=== PATIENT | female | born 1960 | race Caucasian/White ===

== ENCOUNTER → 2016-07-29 | Outpatient (CLI) | payer MEDICARE ==
--- NOTE | 2016-07-29 10:32 | CT ---
EXAMINATION TYPE: CT chest w con DATE OF EXAM: 07/29/2016 9:40 AM COMPARISON: Previous study dated 09/15/2015 and 03/02/2015. HISTORY: Lung cancer CT DLP: 450.70 mGycm Automated exposure control for dose reduction was used. CONTRAST: CT scan of the chest is performed with IV Contrast, patient injected with 100 mL of Omnipaque 300. FINDINGS: There are stable postradiation changes with chronic atelectasis in the right upper lobe. Th ere is a 5.4 mm subpleural nodule in the superior segment of the right lower lobe, best seen on image 24. No other definite parenchymal nodule is seen. There is mild atelectasis or consolidation at the right lung base. This also appears chronic. There is no significant axillary, internal mammary or mediastinal or hilar adenopathy. There is a 6.2 mm lymph node in the aortopulmonary window. There is no pleural or pericardial fluid. The heart is not enlarged. Visualized upper abdominal structures are unremarkable. There is mild hypertrophic spondylosis within the spine. No bony destructive lesion is seen. IMPRESSION: 1. Stable postradiation change in the right lung. 2. New, 5.4 mm subpleural nodule in the superior segment of the right lower lobe. 3. Mild degenerative change within the dorsal spine.
== END | disposition home or self-care (01) ==
LOC: RADCTMAIN 08:45
PROVIDERS: ATTEND Internal Medicine Hematology & Oncology
DX: R91.1 Solitary pulmonary nodule (principal); C34.90 Malignant neoplasm of unspecified part of unspecified bronchus or lung; Z88.5 Allergy status to narcotic agent; Z92.3 Personal history of irradiation
CPT/HCPCS: 71260; Q9967

== ENCOUNTER → 2016-12-21 | Outpatient (CLI) | payer MEDICARE ==
--- NOTE | 2016-12-21 10:12 | CT ---
EXAMINATION TYPE: CT chest w con DATE OF EXAM: 12/21/2016 COMPARISON: 07/29/2016 HISTORY: Follow-up for lung cancer with last radiation in February 2013 and last chemotherapy in 2012. CT DLP: 404.2 mGycm. Automated Exposure Control for Dose Reduction was Utilized. TECHNIQUE: CT scan of the thorax is performed following with IV Contrast, patient injected with 100 mL of Omnipaque 300. FINDINGS: LUNGS: Post radiation changes are appreciated within the right upper lobe and right lower lobe medial ly with postradiation confluent fibrosis and varicose type traction bronchiectasis. Stable areas of a djacent groundglass opacity in a curvilinear orientation in the dependent right lower lobe and anteri or right upper lobe are stable and also relate to postradiation fibrosis. The previously described 5. 4 mm area of subpleural density relates to focal pleural thickening and is now seen on series 4 image 21, similar to the prior. Right hemithorax volume loss is present with mediastinal shift to the righ t. No new nodule or mass is identified within either lung. There is compensatory hyperexpansion of th e left lung with peripheral subpleural reticulation, similar to the prior that may also represent ear ly fibrosis as it is in a peripheral basilar predominant distribution. There is no pleural effusion o r pneumothorax seen. The tracheobronchial tree is patent. MEDIASTINUM: There are no greater than 1 cm hilar or mediastinal lymph nodes. Prominent subcarinal l ymph node measures 8.6 mm but is not enlarged. No pericardial effusion is seen. OTHER: Multilevel mild degenerative changes of the thoracic spine are noted. IMPRESSION: 1. Stable post treatment changes of the right lung with right hemithorax volume loss, post radiation fibrosis, and bronchiectasis. No new pulmonary nodules or masses. 2. No new adenopathy within the thorax. 3. Previously seen approximately 5 mm subpleural density within the right upper lobe relates to focal pleural thickening in a similar to the prior exam. 4. Peripheral basilar predominant left lung subpleural reticulation which may relate to early fibrosi s.
== END | disposition home or self-care (01) ==
LOC: RADCTMAIN 09:18
PROVIDERS: ATTEND Internal Medicine Hematology & Oncology
DX: J47.9 Bronchiectasis, uncomplicated (principal); J84.10 Pulmonary fibrosis, unspecified; J98.4 Other disorders of lung; C34.90 Malignant neoplasm of unspecified part of unspecified bronchus or lung; Z92.3 Personal history of irradiation
CPT/HCPCS: 71260; Q9967

== ENCOUNTER → 2017-07-13 | Outpatient (CLI) | payer MEDICARE ==
--- NOTE | 2017-07-13 11:39 | CT ---
EXAMINATION TYPE: CT ChestAbdPelvis w con DATE OF EXAM: 07/13/2017 COMPARISON: 12/21/2016 HISTORY: Small Cell Lung CA, suspect Mets CT DLP: 1970 mGycm CONTRAST: CT scan of the chest, abdomen and pelvis is performed with Oral Contrast and with IV Contrast, patien t injected with 100 mL of Isovue 300. CT Chest: LUNGS: Post radiation changes are appreciated within the right upper lobe and right lower lobe medial ly with postradiation confluent fibrosis and varicose type traction bronchiectasis. Stable areas of a djacent groundglass opacity in a curvilinear orientation in the dependent right lower lobe and anteri or right upper lobe are stable and also relate to postradiation fibrosis. No evidence for recurrent o r residual mass. No concerning of pulmonary nodule. MEDIASTINUM: Thoracic aorta is of normal caliber. The heart is not enlarged. No evidence for media stinal mass or adenopathy. HILAR STRUCTURES: No evidence for mass. No hilar adenopathy is appreciated. OTHER: No significant abnormality. CONTRAST CT ABDOMEN AND PELVIS FINDINGS: LIVER/GB: There is evidence of mild hepatic steatosis. No calcified gallstones. No space occupying hepatic lesion. Biliary tree is of normal caliber. PANCREAS: No inflammation. No distinct mass. SPLEEN: No splenic enlargement. No lesion seen. ADRENALS: No nodule. No thickening. KIDNEYS/BLADDER: No hydronephrosis. No nephrolithiasis. No disctinct renal mass. BOWEL: Normal appendix. Normal bowel caliber. No inflammation. Moderate fecal stasis. GENITAL ORGANS: No gross abnormality. LYMPH NODES: No greater than 1cm abdominal or pelvic lymph nodes are appreciated. AORTA: No significant abnormality. OSSEOUS STRUCTURES: Postoperative changes lumbar spine. OTHER: No significant additional abnormality is seen. IMPRESSION: 1. No evidence for metastatic disease or recurrent disease at this time. 2. 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 3. Mild hepatic steatosis.
--- NOTE | 2017-07-13 15:41 | NM ---
EXAMINATION TYPE: NM bone scan whole body DATE OF EXAM: 07/13/2017 COMPARISON: Correlation CT same day HISTORY: 57-year-old female with history of lung cancer in 2013. All over headaches, bilateral knee a nd hip pain as well as back pain. Reports L4-S1 spinal fusion in 2010. Technique: Delayed whole-body scanning was performed following the injection of 23.8 mCi Tc 99m MDP. Images acquired 3 hours post injection. FINDINGS: Focal intense activity at the medial right clavicular head and severe within the bilateral knees. Mil d degenerative tracer activity along the posterior elements mid and lower lumbar spine. Mild degenera tive uptake at the AC joints and also some uptake along the Mandible likely relating to periodontal disease. No suspicious distribution of tracer activity to sug gest osseous metastatic disease. IMPRESSION: 1. Asymmetric moderate to severe degenerative change of the right sternoclavicular joint. 2. Severe bilateral knee osteoarthrosis. 3. Periodontal disease is suggested. 4. No scintigraphic evidence for osseous metastatic disease.
== END | disposition home or self-care (01) ==
LOC: RADNMMAIN 09:22
PROVIDERS: ATTEND Internal Medicine Hematology & Oncology
DX: C34.90 Malignant neoplasm of unspecified part of unspecified bronchus or lung (principal); M17.0 Bilateral primary osteoarthritis of knee; K76.0 Fatty (change of) liver, not elsewhere classified; J84.10 Pulmonary fibrosis, unspecified
CPT/HCPCS: 71260; 74177; 78306; A9503; Q9967

== ENCOUNTER → 2018-05-04 | Outpatient (CLI) | payer MEDICARE ==
--- NOTE | 2018-05-04 13:00 | CT ---
EXAMINATION TYPE: CT chest w con DATE OF EXAM: 05/04/2018 COMPARISON: 07/13/2017 HISTORY: History of lung cancer. Coughing up blood for [address] DLP: 441.1 mGycm, Automated exposure control for dose reduction was used. CONTRAST: Performed injected with 100 mL of Isovue 300. TECHNIQUE: Axial images were obtained at 5 mm thick sections. Reconstructed images are reviewed on [employer] computer in the coronal plane. FINDINGS: Portion of the thyroid visualized is normal. There is a consolidation in the medial right apex extending to the right posterior lung. A portion of this may be related to postradiation fibrosis. Underlying mass is within the differential. This area appears similar distribution in size to 07/13/2017 examination. No enlarged mediastinal or hilar adenopathy is evident. The ascending aorta diameter at the level o f the main pulmonary artery is 3.3 cm. The main pulmonary artery diameter at the bifurcation is 2.6 cm. Coronary artery calcification is present. Limited CT sections are obtained through the upper abdomen. Abdomen is essentially unremarkable. IMPRESSIONS: 1. There appear to be post radiation changes to the right medial apex. Findings appear stable from 07/13/2017.
== END | disposition home or self-care (01) ==
LOC: RADCTMAIN 11:47
PROVIDERS: ATTEND Internal Medicine Hematology & Oncology
DX: C34.90 Malignant neoplasm of unspecified part of unspecified bronchus or lung (principal)
CPT/HCPCS: 71260; Q9967

== ENCOUNTER → 2018-11-14 | Outpatient (CLI) | payer MEDICARE ==
[2018-11-14 15:10] LABS: Appearance,Urine Clear (Clear); Bilirubin,Urine Negative (Negative); Blood,Urine Negative (Negative); Color,Urine Light Yellow; Glucose,Urine (UA) Negative (Negative); Ketones,Urine Negative (Negative); Leukocyte Esterase,Urine Negative (Negative); Nitrite,Urine Negative (Negative); Protein,Urine Negative (Negative); Urobilinogen,Urine <2.0 mg/dL (<2.0)
[2018-11-14 15:12] LABS: HGB 15.2 gm/dL (11.4-16.0); MCH 30.6 pg (25.0-35.0); MCHC 33.8 g/dL (31.0-37.0); MCV 90.6 fL (80.0-100.0); Mean Platelet Volume 6.3; Platelet Count 355 k/uL (150-450); RBC 4.96 m/uL (3.80-5.40); RDW 14.1 % (11.5-15.5); WBC 6.6 k/uL (3.8-10.6)
[2018-11-14 15:24] LABS: Albumin 4.2 g/dL (3.5-5.0); Calcium 9.7 mg/dL (8.4-10.2); Potassium 4.7 mmol/L (3.5-5.1); Total Bilirubin 0.4 mg/dL (0.2-1.3); Total Protein 7.4 g/dL (6.3-8.2)
[2018-11-14 15:29] LABS: INR 0.9 (<1.2); Partial Thromboplastin Time 28.1 sec (22.0-30.0); Prothrombin Time 9.7 sec (9.0-12.0)
== END | disposition home or self-care (01) ==
LOC: LABPAT 14:04
PROVIDERS: ATTEND Orthopaedic Surgery
DX: Z01.812 Encounter for preprocedural laboratory examination (principal); Z79.01 Long term (current) use of anticoagulants
CPT/HCPCS: 36415; 80053; 81003; 85027; 85610; 85730; 87070

== ENCOUNTER 2018-11-21 13:34 | Day surgery (SDC) | payer MEDICARE ==
[~2018-11-21 13:34] MED LIST: ACETAMINOPHEN TAB 500 MG TAB PO ONE; MELOXICAM 7.5 MG TAB PO ONE; ROPIVACAINE 246.25 MG, EPINEPHrine 0.5 MG, KETOROLAC 30 MG, cloNIDine HCL/PF 80 MCG, WA... MISCELLANE ONE; TRANEXAMIC ACID 1,000 MG in SODIUM CHLORIDE 0.9% 100 ML IVPB ONE
[2018-11-21] MEDS ORDERED: ONDANSETRON 4 MG/2 ML VIAL IVP ONE (14:00)
[2018-11-21] MEDS ORDERED: DEXAMETHASONE SOD PHOSPHATE 10 MG/ML 1 ML VIAL IV ONE (14:00)
[2018-11-21] MEDS ORDERED: LIDOCAINE 1% 20 ML VIAL (10MG/ML) FOR IV START IV ONE (14:00)
[2018-11-21] MEDS ORDERED: LACTATED RINGERS 1,000 ML IV ONE ×2 (14:02→16:00)
[2018-11-21] MEDS ORDERED: NA PHOS,M-B/NA PHOS,DI-BA 133 ML ENEMA RECTAL PRN (14:10)
[2018-11-21] MEDS ORDERED: HYDROcodone/APAP 5-325MG 1 EACH TAB PO PRN (14:10)
[2018-11-21] MEDS ORDERED: NALOXONE 0.4 MG/ML 1 ML VIAL IV PRN (14:10)
[2018-11-21] MEDS ORDERED: DIAZEPAM 5 MG TAB PO PRN (14:10)
[2018-11-21] MEDS ORDERED: ONDANSETRON 4 MG/2 ML VIAL IVP PRN (14:10)
[2018-11-21] MEDS ORDERED: BISACODYL 10 MG SUPP RECTAL PRN (14:10)
[2018-11-21] MEDS ORDERED: MAGNESIUM HYDROXIDE 2,400 MG/10 ML CUP PO PRN (14:10)
[2018-11-21] MEDS ORDERED: fentaNYL (PF) 50 MCG/ML 2 ML AMP IV ONE (14:11)
[2018-11-21] MEDS ORDERED: MIDAZOLAM (PF) 2 MG/2 ML VIAL IV ONE (14:11)
[2018-11-21] MEDS ORDERED: MIDAZOLAM 2 MG/2 ML VIAL ONE (14:29)
[2018-11-21] MEDS ORDERED: diphenhydrAMINE 50 MG/ML 1 ML VIAL ONE (14:29)
[2018-11-21] MEDS ORDERED: PROPOFOL 10 MG/ML 20 ML VIAL IV ONE (14:29)
[2018-11-21] MEDS ORDERED: fentaNYL (PF) 50 MCG/ML 2 ML AMP ONE (14:29)
[2018-11-21] MEDS ORDERED: TRANEXAMIC ACID 1,000 MG/10 ML VIAL ONE (14:29)
[2018-11-21] MEDS ORDERED: SODIUM CHLORIDE 0.9% 100 ML BAG ONE (14:29)
[2018-11-21] MEDS ORDERED: ceFAZolin 3,000 MG in SODIUM CHLORIDE 0.9% IRRIGATIO 3,000 ML IRRIGATION ONE (14:35)
[2018-11-21] MEDS ORDERED: ROPIVACAINE 0.2%-NS ON-Q PUMP 1,090 MG, EMPTY PAIN BALL 1 EACH MISCELLANE PRN (15:19)
--- NOTE | 2018-11-21 15:20 | P.ANPRN ---
Procedure Note - Anesthesia - Nerve Block Performed Right Adductor Canal Infusion Time Out Performed: Yes Date of Procedure: 11/21/18 Procedure Start Time: 14:10 Procedure Stop Time: 14:19 Location of Patient Procedure: PreOp Indication: Acute Post-Operative Pain, Requested by Surgeon Sedation Type: Sedate with meaningful contact maintained Preparation: Sterile Prep, Sterile Dressing Position: Supine Catheter: Indwelling Needle Types: Pajunk Needle Gauge: 18 Ultrasound used to visualize needle placement: Yes Ultrasound used to observe medication spread: Yes Injectate: 0.5% Ropivacaine (see comment for volume) (20 ml) Blood Aspirated: No Pain Paresthesia on Injection Noted: No Resistance on Injection: Normal Image Stored and Saved: Yes Events: Uneventful and Well Tolerated
--- NOTE | 2018-11-21 15:49 | P.OP ---
Date of Procedure: 11/21/18 Preoperative Diagnosis: Severe osteoarthritis of the right knee Postoperative Diagnosis: Severe osteoarthritis right knee Procedure(s) Performed: Right total knee arthroplasty with [employer] patient specific knee system Implants: Dillon and Nephew Journey II CR Oxinium cruciate retaining femoral component size 5, right Dillon [employer] Nephew Journey right nonporous tibial baseplate size 3 Dillon [employer] Nephew Journey II, XLPE Deep Dished articular insert, size 9 mm, Size 3- 4 right Dillon [employer] Nephew Journey BCS resurfacing oval patellar component, 32 mm All components were cemented using Palacos R bone cement. [employer] patient specific guides The articulation is Oxinium on polyethylene. Anesthesia: spinal Surgeon: Deshawn Cunningham Farmer [employer]rain #1: Lety Herring Estimated Blood Loss (ml): 50 Pathology: other (Bone and cartilage) Condition: stable Disposition: PACU Indications for Procedure: After failure of conservative treatment we discussed the surgical and nonsurgical treatment options at length. Patient wishes to proceed with a total knee arthroplasty. Complications specific to this procedure were discussed at length, including but not limited to infection, bleeding, stiffness, and nerve injury. Patient is aware of all these complications and informed consent was obtained Operative Findings: The operative findings are consistent with severe osteoarthritis of the right knee Description of Procedure: Patient was seen in the preoperative area consent was reviewed and operative site was marked with a skin marker. An adductor canal pain catheter was placed by anesthesia in the preoperative area. Patient was then brought to the operating room and given preoperative antibiotics intravenously. A spinal anesthetic was administered by the anesthesia department. A tourniquet was placed on the upper thigh and the lower extremity was prepped and draped in usual sterile fashion. A gram of transexamic acid was given. A universal timeout was then performed which confirmed the patient's name, surgical site, ALLERGIES, and consent. The lower extremity was then exsanguinated and tourniquet was inflated to 250 mmHg. A standard and anterior midline approach to the knee was performed. The skin and subcutaneous tissue was dissected down to the patellar tendon. A medial parapatellar arthrotomy was then performed. The knee was then extended, the patellar was everted, and the knee was again flexed. Anterior horns of both menisci were excised, and a release was performed to the posterior medial aspect of the knee. On gross visual inspection, there was complete loss of articular cartilage in the medial and patellofemoral joint spaces. There was also significant cartilage damage in the lateral compartment. There were multiple periarticular osteophytes. The patient specific guide was placed on the distal femur, and pinned in place. Using the patient specific guide, the distal femoral cut was performed. The cutting block was then removed and the cut was checked for flatness. The appropriate 5-in-1 cutting block was then pinned in place through the holes that were drilled through the patient specific guide. The anterior condyles were cut without notching. The posterior and chamfer cuts were performed while protecting the collateral ligaments. The cutting block was then removed. Attention was then directed to the tibia. The remaining ACL was removed with a Ronguer, and the tibia was then gently subluxed forward with a large bent knee retractor. Any remaining menisci was excised. The posterior lateral corner was cauterized in order to cauterize the lateral geniculate artery. The patient specific guide for the tibia was then placed and was held in place with pins. Pinholes were then placed for rotation of the tibial component as well. Proximal tibia was then cut and sized. Next trials were then placed with the appropriate-sized insert. The knee was able to fully extend and flex to 130 and was stable throughout all range of motion. The knee was then extended, patella everted. Patella was then measured, and then using an osteotomy guide, the patella was cut at the appropriate level. The patella was then measured and drilled and the patella trial was then placed. The knee was then taken through range of motion with the patella trial and the patella tracked normally. The knee was then extended patella trial was then removed and the patella was everted. Knee was then flexed and lug holes were drilled through the femoral trial and the femoral trial was then removed. The tibial was then exposed, and the tibial broach guide was then pinned in place after it was set for the appropriate rotation to allow for the most coverage without overhang. The tibia was then reamed and broached. The cut surfaces of bone were then irrigated with pulsatile lavage. The posterior structures were injected with the ropivacaine solution. The knee was also irrigated with Irrisept solution. The components were then opened, the cement was mixed, and the components were then cemented in place. The cement was allowed to harden with the knee in full extension. While the cement was hardening, the remaining soft tissues were then injected with a ropivacaine solution, which consisted of 246.25 mg of ropivacaine, 0.5 mg of epinephrine, 30 mg of Toradol, 80 g of clonidine, and 48.45 mL of sterile water, for a total of 100 mL of fluid injected. After the cemented hardened. The tourniquet was released, and hemostasis was obtained. A second gram of transexamic acid was given. The knee was again irrigated. The knee was again taken through range of motion and found to be stable throughout all range of motion of 0-130, and the patella tracked normally. The fascia was then closed with #2 strata fix suture. The subcutaneous tissue was closed with 3-0 Vicryl and 3-0 strata fix. Dermabond glue was used for the skin and placed with the knee in flexion. The patient was placed in a sterile silver dressing. Patient was then transferred to recovery room in stable condition. The housekeeper/laundry assistant MATTIE Borrego was required due the complexity surgery and the need for a skilled surgical asst. She assisted in positioning, draping, retraction, and closure of the wound.
--- NOTE | 2018-11-21 17:18 | XR ---
EXAMINATION TYPE: XR knee limited RT DATE OF EXAM: 11/21/2018 COMPARISON: NONE HISTORY: Pain. Postop. TECHNIQUE: 2 views FINDINGS: There is a right knee prosthesis. Components are in anatomic position. IMPRESSION: No complicating process seen.
[2018-11-21 19:35] VITALS: BMI 29.0
[2018-11-21] MEDS: SODIUM CHLORIDE 0.9% 1,000 ML IV SCH (19:36)
[2018-11-21] MEDS: ASPIRIN 325 MG TAB PO SCH (20:39)
[2018-11-21] MEDS: hydrOXYzine PAMOATE 25 MG CAP PO PRN (20:39)
[2018-11-21] MEDS: HYDROcodone/APAP 5-325MG 1 EACH TAB PO PRN (20:39)
[2018-11-21] MEDS ORDERED: SENNOSIDES-DOCUSATE SODIUM 1 EACH TAB PO SCH (21:00)
[2018-11-21] MEDS ORDERED: PANTOPRAZOLE 40 MG TABLET PO SCH (21:30)
[2018-11-21] MEDS ORDERED: CYCLOBENZAPRINE 10 MG TAB PO SCH (21:30)
[2018-11-21] MEDS ORDERED: AMITRIPTYLINE HCL 25 MG TAB PO SCH (21:30)
[2018-11-21] MEDS: GABAPENTIN 300 MG CAP PO SCH (22:31)
--- NOTE | 2018-11-22 00:05 | P.CONS ---
History of Present Illness - Reason for Consult Consult date: 11/21/18 Medical management - Chief Complaint Right total knee arthroplasty elective surgery - History of Present Illness Patient is a 58-year-old female with a known history of COPD, coronary artery disease status post stent placement 3, GERD, hyperlipidemia and osteoarthritis was admitted to the hospital for elective right total knee arthroplasty. Patient currently denied any complaints of chest pain or shortness of breath. No nausea vomiting or abdominal pain. Right knee pain is well controlled otherwise postoperatively patient is hypotensive. No complaints of dizziness or lightheadedness. No cough or sputum production. Patient otherwise continues to smoke. Review of Systems Constitutional: Patient denies any fever or chills . No generalized weakness or weight loss. Abdomen: Patient denied nausea vomiting and diarrhea and abdominal pain. Cardiovascular: Patient denies any chest pain or short of breath no palpitations. Respiratory: patient denied any cough is from production. No shortness of breath Neurologic: Patient denied any numbness or tingling headache. Musculoskeletal: Patient denies any complaints of joint swelling or deformity. Skin: Negative Psychiatric: Negative Endocrine: No heat or cold intolerance. No recent weight gain. Genitourinary: No dysuria or hematuria. All other 14 point ROS negative except the above Past Medical History Past Medical History: Coronary Artery Disease (CAD), Cancer, COPD, GERD/Reflux, Hyperlipidemia, Osteoarthritis (OA) Additional Past Medical History / Comment(s): Fibromyalgia, lung cancer Last Myocardial Infarction Date:: 2016 History of Any Multi-Drug Resistant Organisms: None Reported Past Surgical History: Back Surgery, Section, Heart Catheterization With Stent, Hysterectomy Additional Past Surgical History / Comment(s): RIGHT KNEE ARTHROSCOPIC , LUNG BIOPSY Past Anesthesia/Blood Transfusion Reactions: Motion Sickness, Postoperative Nausea & Vomiting (PONV) Date of Last Stent Placement:: 2016 Past Psychological History: No Psychological Hx Reported Smoking Status: Current some day smoker Past Alcohol Use History: None Reported Additional Past Alcohol Use History / Comment(s): STATES SHE SMOKES ONE CIGARETTE DAILY Past Drug Use History: None Reported - Past Family History Mother Family Medical History: No Reported History Medications and Allergies Home Medications Medication Instructions Recorded Confirmed Type Albuterol Inhaler [Ventolin Hfa 2 puff INHALATION RT-Q6H PRN 03/02/15 11/21/18 History Inhaler] Albuterol Nebulized [Ventolin 3 mg INHALATION RT-TID PRN 03/02/15 11/21/18 History Nebulized] Amitriptyline HCl [Elavil] 75 mg PO HS 03/02/15 11/21/18 History Cyclobenzaprine [Flexeril] 10 mg PO HS 03/02/15 11/21/18 History Estradiol [Estrace] 1 mg PO DAILY 03/02/15 11/21/18 History Gabapentin 600 mg PO TID 03/02/15 11/21/18 History Ipratropium Nebulized [Atrovent 0.5 mg INHALATION RT-TID 03/02/15 11/21/18 History Nebulized 0.2 MG/ML] Omeprazole 40 mg PO HS 03/02/15 11/21/18 History Aspirin 325 mg PO DAILY #30 tab 03/04/15 11/21/18 Rx Nitroglycerin Sl Tabs [Nitrostat] 0.4 mg SUBLINGUAL Q5M PRN #25 tab 03/04/15 11/21/18 Rx Budesonide [Pulmicort] 0.25 mg INHALATION BID 01/01/16 11/21/18 History Cbd Oil 1 applic PO DAILY 11/14/18 11/21/18 History Ezetimibe [Zetia] 10 mg PO DAILY 11/14/18 11/21/18 History traMADol HCL [Ultram] 50 mg PO Q12HR PRN 11/14/18 11/21/18 History Allergies Allergy/AdvReac Type Severity Reaction Status Date / Time codeine Allergy Rash/Hives, Verified 11/21/18 13:47 VOMITING hydromorphone HCl Allergy Anaphylaxis Verified 11/21/18 13:47 [From Dilaudid] Physical Exam Vitals: Vital Signs Temp Pulse Pulse Resp BP Pulse Ox 11/21/18 20:41 98.8 F 104 H 16 105/68 96 11/21/18 18:00 97.8 F 101 H 18 112/70 98 11/21/18 17:02 101 H 16 110/60 97 11/21/18 16:47 105 H 16 113/61 95 11/21/18 16:30 102 H 16 108/65 95 11/21/18 16:25 97.8 F 102 H 14 102/61 95 11/21/18 14:24 95 16 109/65 97 11/21/18 13:49 98.1 F 111 H 16 116/58 96 Intake and Output 11/21/18 11/21/18 11/21/18 06:59 14:59 22:59 Intake Total 1051 1030 Output Total 50 Balance 1051 980 Intake: IV 1051 100 Intake, IV Titration 140 Amount Sodium Chloride 0.9% 1, 140 000 ml @ 70 mls/hr IV . [id number] Rx#:[id number] Oral 790 Output: Estimated Blood Loss 50 Other: Voiding Method Toilet Diaper # Voids 2 PHYSICAL EXAMINATION: Patient is lying in the bed comfortably, no acute distress, awake alert and oriented.. HEENT: Normocephalic. Neck is supple. Pupils reactive. Nostrils clear. Oral cavity is moist. Ears reveal no drainage. Neck reveals no JVD, carotid bruits, or thyromegaly. CHEST EXAMINATION: Trachea is central. Symmetrical expansion. Lung cramer clear to auscultation and percussion. CARDIAC: Normal S1, S2 with no gallops. No murmurs ABDOMEN: Soft. Bowel sounds normal. No organomegaly. No abdominal bruits. Extremities: reveal no edema. No clubbing or cyanosis Neurologically awake, alert, oriented x3 with well-coordinated movements. No focal deficits noted Skin: No rash or skin lesions. Psychiatric: Coperative. Nonsuicidal Musculoskeletal: No joint swelling or deformity. Right knee surgical site is intact.. Assessment and Plan Assessment: Status post right total knee arthroplasty postoperative day 0. Hypertension likely due to anesthesia and narcotic pain medications. Stable now. COPD stable. Coronary artery disease with history of stent placement 3 GERD Hyperlipidemia Osteoarthritis of multiple joints Currently one cigarette per day History of back surgery History of lung cancer DVT prophylaxis Plan: Patient be continued on pain medications and bowel regimens as per primary team. Encourage ambulation and incentive spirometry. DVT prophylaxis. Continue with aspirin statins. Continue with duo nebs and follow closely. Monitor blood pressure and fluid bolus as needed. Limit narcotic pain medication use. Smoking cessation has been counseled Further recommendations based on the clinical course. We will continue to follow with you. Thank you for your consult. Time with Patient: Greater than 30
[2018-11-22 02:14] VITALS: RESP 18
[2018-11-22] MEDS: hydrOXYzine PAMOATE 25 MG CAP PO PRN (02:34)
[2018-11-22] MEDS: HYDROcodone/APAP 5-325MG 1 EACH TAB PO PRN ×2 (02:34→08:15)
[2018-11-22] MEDS: SODIUM CHLORIDE 0.9% 1,000 ML IV SCH (05:54)
[2018-11-22 06:59] LABS: Basophils # (A) 0.1 k/uL (0-0.2); Basophils % (A) 0 %; Eosinophils % (A) 0 %; HCT 40.3 % (34.0-46.0); HGB 13.5 gm/dL (11.4-16.0); Lymphocytes # (A) 1.7 k/uL (1.0-4.8); Lymphocytes % (A) 8 %; MCH 30.2 pg (25.0-35.0); MCHC 33.4 g/dL (31.0-37.0); MCV 90.2 fL (80.0-100.0); Mean Platelet Volume 6.9; Monocytes # (A) 0.7 k/uL (0-1.0); Monocytes % (A) 3 %; Neutrophils # (A) 18.4 k/uL (1.3-7.7); Neutrophils % (A) 88 %; Platelet Count 411 k/uL (150-450); RBC 4.47 m/uL (3.80-5.40); RDW 15.3 % (11.5-15.5)
[2018-11-22 07:11] LABS: African American GFR (CKD) >90 (>60 ml/min/1.73 sqM); Anion Gap 10 mmol/L; Blood Urea Nitrogen 19 mg/dL (7-17); Calcium 9.5 mg/dL (8.4-10.2); Carbon Dioxide 23 mmol/L (22-30); Chloride 104 mmol/L (98-107); Glucose 109 mg/dL (74-99); Potassium 4.6 mmol/L (3.5-5.1); Sodium 137 mmol/L (137-145)
[2018-11-22 07:28] VITALS: BP 120/73; PULSE 90; TEMP 98.6
[2018-11-22] MEDS: GABAPENTIN 300 MG CAP PO SCH (08:11)
[2018-11-22] MEDS: ASPIRIN 325 MG TAB PO SCH (08:12)
--- NOTE | 2018-11-22 08:14 | P.PN ---
Progress Note - Text Progress Note Date: 11/22/18 Pt with some pain in the posterior knee as expected. Pain covered with PO meds. Ambulating w/o weakness. VSS R adductor canal catheter site clean and dry POD#1 s/p R TKA - doing well
[2018-11-22] MEDS ORDERED: EZETIMIBE 10 MG TAB PO SCH (09:00)
[2018-11-22] MEDS ORDERED: MELOXICAM 7.5 MG TAB PO SCH (09:00)
[2018-11-22] MEDS ORDERED: ESTRADIOL 0.5 MG TAB PO SCH (09:00)
[2018-11-22] MEDS ORDERED: traMADol 50 MG TAB PO PRN ×2 (09:02)
--- NOTE | 2018-11-22 09:43 | P.DS ---
Providers Expected date of discharge: 11/22/18 Attending physician: Deshawn Cunningham Consults: 11/21/18 14:10 Consult Physician Routine Consulting Provider: Iram Paredes Consult Reason/Comments: medical management Do you want consulting provider notified?: Yes Primary care physician: Sandrita Raphael - Discharge Diagnosis(es) (1) Osteoarthritis of right knee Current Visit: Yes Status: Acute (2) S/P total knee arthroplasty Current Visit: Yes Status: Acute Hospital Course: This is a 58-year-old female with known history of degenerative arthritis of the right knee. The patient presents for evaluation. After discussion and consideration patient elects to proceed with total knee arthroplasty. The patient is seen preoperatively by Dr. Cunningham and medically cleared for surgery by their primary care physician. Patient is admitted to [facility] on 11/21/2018 for total knee arthroplasty. The procedures performed without complication or sequelae. The patient is doing well postoperatively. Labs and vital signs are stable on day of discharge. On day of discharge patient's knee incision is healing well. There is minimal erythema. There is no drainage noted at this time. There is minimal soft tissue swelling to the knee. Patient has full foot and ankle motion without difficulty or pain. Calf is soft and nontender to palpation. Neurovascular status to the right lower extremity is intact. Patient is discharged home in good condition. Opioid start talking form is reviewed and signed at patient bedside. Please see med rec for accurate list of home medications. Plan - Discharge Summary Discharge Rx Participant: Yes New Discharge Prescriptions: New Aspirin 325 mg PO BID #60 tab Sennosides [Senokot] 1 tab PO BID #60 tablet traMADol HCl [Ultram] 1 - 2 tab PO Q6H PRN #56 tab PRN Reason: Pain No Action Ipratropium Nebulized [Atrovent Nebulized 0.2 MG/ML] 0.5 mg INHALATION RT-TID Albuterol Nebulized [Ventolin Nebulized] 3 mg INHALATION RT-TID PRN PRN Reason: Shortness Of Breath Omeprazole 40 mg PO HS Estradiol [Estrace] 1 mg PO DAILY Gabapentin 600 mg PO TID Cyclobenzaprine [Flexeril] 10 mg PO HS Amitriptyline HCl [Elavil] 75 mg PO HS Albuterol Inhaler [Ventolin Hfa Inhaler] 2 puff INHALATION RT-Q6H PRN PRN Reason: Shortness Of Breath Aspirin 325 mg PO DAILY #30 tab Nitroglycerin Sl Tabs [Nitrostat] 0.4 mg SUBLINGUAL Q5M PRN #25 tab PRN Reason: Chest Pain Budesonide [Pulmicort] 0.25 mg INHALATION BID Ezetimibe [Zetia] 10 mg PO DAILY traMADol HCL [Ultram] 50 mg PO Q12HR PRN PRN Reason: Pain Cbd Oil 1 applic PO DAILY Discharge Medication List Albuterol Inhaler [Ventolin Hfa Inhaler] 2 puff INHALATION RT-Q6H PRN 03/02/15 [History] Albuterol Nebulized [Ventolin Nebulized] 3 mg INHALATION RT-TID PRN 03/02/15 [History] Amitriptyline HCl [Elavil] 75 mg PO HS 03/02/15 [History] Cyclobenzaprine [Flexeril] 10 mg PO HS 03/02/15 [History] Estradiol [Estrace] 1 mg PO DAILY 03/02/15 [History] Gabapentin 600 mg PO TID 03/02/15 [History] Ipratropium Nebulized [Atrovent Nebulized 0.2 MG/ML] 0.5 mg INHALATION RT-TID 03/02/15 [History] Omeprazole 40 mg PO HS 03/02/15 [History] Aspirin 325 mg PO DAILY #30 tab 03/04/15 [Rx] Nitroglycerin Sl Tabs [Nitrostat] 0.4 mg SUBLINGUAL Q5M PRN #25 tab 03/04/15 [Rx] Budesonide [Pulmicort] 0.25 mg INHALATION BID 01/01/16 [History] Cbd Oil 1 applic PO DAILY 11/14/18 [History] Ezetimibe [Zetia] 10 mg PO DAILY 11/14/18 [History] traMADol HCL [Ultram] 50 mg PO Q12HR PRN 11/14/18 [History] Aspirin 325 mg PO BID #60 tab 11/22/18 [Rx] Sennosides [Senokot] 1 tab PO BID #60 tablet 11/22/18 [Rx] traMADol HCl [Ultram] 1 - 2 tab PO Q6H PRN #56 tab 11/22/18 [Rx] Follow up Appointment(s)/Referral(s): [facility], [NON-STAFF] - As Needed Deshawn Cunningham DO [Doctor of Osteopathic Medicine] - 2 Weeks Ambulatory/Diagnostic Orders: Continuous Passive Motion (CPM) Machine [DME.AMB1] Time Frame: 3 Weeks, Location: None Selected Activity/Diet/Wound Care/Special Instructions: Weightbearing as tolerated with a walker. CPM 5-6h daily. Leave dressing intact. May be removed by home care nurse or by patient in 10 days. May shower with dressing on. Recommend use of compression stockings daily for at least 2 weeks during the day to help prevent swelling and blood clots. May remove at night before sleeping. Please follow up with [facility] and call with any questions or concerns, . Discharge Disposition: HOME WITH HOME HEALTH SERVICES
== END 2018-11-22 12:38 | disposition home health service (06) ==
LOC: OR 13:34 → 4SSUR 16:27 → OR 11-22 12:38
PROVIDERS: ATTEND Orthopaedic Surgery
DX: M17.11 Unilateral primary osteoarthritis, right knee (principal); M25.761 Osteophyte, right knee; I25.10 Atherosclerotic heart disease of native coronary artery without angina pectoris; E78.5 Hyperlipidemia, unspecified; Z95.5 Presence of coronary angioplasty implant and graft; K21.9 Gastro-esophageal reflux disease without esophagitis; M79.7 Fibromyalgia; I11.9 Hypertensive heart disease without heart failure; J44.9 Chronic obstructive pulmonary disease, unspecified; I25.2 Old myocardial infarction; D75.9 Disease of blood and blood-forming organs, unspecified; F17.210 Nicotine dependence, cigarettes, uncomplicated; R26.9 Unspecified abnormalities of gait and mobility; Z90.710 Acquired absence of both cervix and uterus; Z97.3 Presence of spectacles and contact lenses; Z85.118 Personal history of other malignant neoplasm of bronchus and lung; Z92.21 Personal history of antineoplastic chemotherapy; Z92.3 Personal history of irradiation; Z79.1 Long term (current) use of non-steroidal anti-inflammatories (NSAID); Z79.82 Long term (current) use of aspirin; Z79.891 Long term (current) use of opiate analgesic; Z79.51 Long term (current) use of inhaled steroids; Z79.899 Other long term (current) drug therapy; Z79.890 Hormone replacement therapy; Z88.5 Allergy status to narcotic agent
CPT/HCPCS: 97161; 64448; 88305; 80048; 85025; 88342; 88311; 88341; 73560; 27447; C1713; C1776; J2250 ×2; J0171; J1200; J1100; J0690 ×3; J2405; J3010; J1885; J2795 ×2; J2704; J0735

== ENCOUNTER 2018-11-22 23:33 | Observation (INO) | payer MEDICARE ==
[2018-11-23] MEDS ORDERED: ONDANSETRON 4 MG/2 ML VIAL IVP STA (00:14)
[2018-11-23] MEDS ORDERED: MORPHINE SULFATE 4 MG/ML SYRINGE IVP STA ×2 (00:14→01:09)
[2018-11-23] MEDS ORDERED: oxyCODONE-APAP 5-325MG 1 EACH TAB PO STA (01:08)
--- NOTE | 2018-11-23 02:05 | ED ---
Lower Extremity Injury HPI - General Chief Complaint: Extremity Injury, Lower Stated Complaint: post op rt leg pain Time Seen by Provider: 11/22/18 23:39 Source: patient Mode of arrival: wheelchair Limitations: no limitations - History of Present Illness Initial Comments: 58-year-old female patient presents to the emergency department today for evaluation of right knee and leg pain. The patient underwent right total knee arthroplasty yesterday with Dr. Cunningham. Patient states that today her pain has been gradually increasing. States that her home pain medications which include Ultram, Aleve, and the implanted pain pump is not helping. Patient states that she has had some bloody drainage around the pump insertion site. States he did speak to Dr. Worley this evening who recommended she come in for further evaluation. She states the leg is swollen. She states she does have some residual numbness from the surgery, but no new areas of numbness. Patient denies any recent rash, fever, chills, shortness breath, chest pain, abdominal pain, nausea, vomiting, diarrhea, constipation, back pain, dizziness, weakness, hematuria, dysuria, urinary urgency, urinary frequency, headache, visual changes, or any other complaints. - Related Data Home Medications Medication Instructions Recorded Confirmed Albuterol Inhaler [Ventolin Hfa 2 puff INHALATION RT-Q6H PRN 03/02/15 11/21/18 Inhaler] Albuterol Nebulized [Ventolin 3 mg INHALATION RT-TID PRN 03/02/15 11/21/18 Nebulized] Amitriptyline HCl [Elavil] 75 mg PO HS 03/02/15 11/21/18 Cyclobenzaprine [Flexeril] 10 mg PO HS 03/02/15 11/21/18 Estradiol [Estrace] 1 mg PO DAILY 03/02/15 11/21/18 Gabapentin 600 mg PO TID 03/02/15 11/21/18 Ipratropium Nebulized [Atrovent 0.5 mg INHALATION RT-TID 03/02/15 11/21/18 Nebulized 0.2 MG/ML] Omeprazole 40 mg PO HS 03/02/15 11/21/18 Budesonide [Pulmicort] 0.25 mg INHALATION BID 01/01/16 11/21/18 Cbd Oil 1 applic PO DAILY 11/14/18 11/21/18 Ezetimibe [Zetia] 10 mg PO DAILY 11/14/18 11/21/18 traMADol HCL [Ultram] 50 mg PO Q12HR PRN 11/14/18 11/21/18 Previous Rx's Medication Instructions Recorded Aspirin 325 mg PO DAILY #30 tab 03/04/15 Nitroglycerin Sl Tabs [Nitrostat] 0.4 mg SUBLINGUAL Q5M PRN #25 tab 03/04/15 Aspirin 325 mg PO BID #60 tab 11/22/18 Sennosides [Senokot] 1 tab PO BID #60 tablet 11/22/18 traMADol HCl [Ultram] 1 - 2 tab PO Q6H PRN #56 tab 11/22/18 Allergies Allergy/AdvReac Type Severity Reaction Status Date / Time codeine Allergy Rash/Hives, Verified 11/22/18 23:37 VOMITING hydromorphone HCl Allergy Anaphylaxis Verified 11/22/18 23:37 [From Dilaudid] Review of Systems ROS Statement: Those systems with pertinent positive or pertinent negative responses have been documented in the HPI. ROS Other: All systems not noted in ROS Statement are negative. Past Medical History Past Medical History: Coronary Artery Disease (CAD), Cancer, COPD, GERD/Reflux, Hyperlipidemia, Osteoarthritis (OA) Additional Past Medical History / Comment(s): Fibromyalgia, lung cancer History of Any Multi-Drug Resistant Organisms: None Reported Past Surgical History: Back Surgery, Section, Hysterectomy Additional Past Surgical History / Comment(s): RIGHT KNEE ARTHROSCOPIC , LUNG BIOPSY Past Anesthesia/Blood Transfusion Reactions: Motion Sickness, Postoperative Nausea & Vomiting (PONV) Date of Last Stent Placement:: 2016 Past Psychological History: No Psychological Hx Reported Smoking Status: Current some day smoker Past Alcohol Use History: None Reported Past Drug Use History: None Reported - Past Family History Mother Family Medical History: No Reported History General Exam Limitations: no limitations General appearance: alert, in no apparent distress, other (This is a well- developed, well-nourished adult female patient in no acute distress. Vital signs upon presentation are temperature 98.6F, pulse 111, respirations 26, blood pressure 130/83, pulse ox 99% on room air) Respiratory exam: Present: normal lung sounds bilaterally. Absent: respiratory distress, wheezes, rales, rhonchi, stridor Cardiovascular Exam: Present: regular rate, normal rhythm, normal heart sounds. Absent: systolic murmur, diastolic murmur, rubs, gallop, clicks Extremities exam: Present: full ROM, normal capillary refill, other (There is right leg edema. There is midline right anterior knee incision with an intact and dry dressing. There is pain, inserted into the right thigh with some bloody drainage surrounding the insertion site. Skin is warm and dry. Cap refills less than 3 seconds. Pedal and posttibial pulses are 2+ and equal bilaterally.). Absent: normal inspection, tenderness, pedal edema, joint swelling, calf tenderness Neurological exam: Present: alert, oriented X3, CN II-XII intact Psychiatric exam: Present: normal affect, normal mood Skin exam: Present: warm, dry, intact, normal color. Absent: rash Course Vital Signs 11/22/18 11/23/18 23:34 02:00 Temperature 98.6 F 97.6 F Pulse Rate 111 H 94 Respiratory 26 H 16 Rate Blood Pressure 130/83 116/62 O2 Sat by Pulse 99 97 Oximetry Medical Decision Making - Medical Decision Making 58-year-old female patient presents to the emergency department today for evaluation of right knee pain. She has 1 day postop from right total knee arthroplasty with Dr. Cunnignham. Physical examination reveals a dry and intact dressing to the right anterior knee. Skin is pink, warm, dry. Cap refills less than 3 seconds. Pulses are intact. Patient was given multiple doses of pain medication here in the emergency department. Upon reevaluation patient is reporting 8/10 pain to the right knee and leg. I did discuss the case with on- call personnel specialist Dr. Worley who agrees to admission for intractable pain. Disposition Clinical Impression: Right knee pain, Post-op pain Disposition: ADMITTED IP TO THIS [facility] Condition: Serious Referrals: Sandrita Raphael MD [Primary Care Provider] - 1-2 days Decision to Admit Reason: Admit from Decision Date: 11/23/18 Decision Time: 03:07
[2018-11-23] MEDS ORDERED: NALOXONE 0.4 MG/ML 1 ML VIAL IV PRN (03:09)
[2018-11-23] MEDS ORDERED: oxyCODONE-APAP 5-325MG 1 EACH TAB PO PRN (03:09)
[2018-11-23] MEDS ORDERED: ONDANSETRON 4 MG/2 ML VIAL IVP PRN (03:09)
[2018-11-23] MEDS: MORPHINE SULFATE 4 MG/ML SYRINGE IV PRN ×2 (04:16→08:05)
[2018-11-23 08:13] VITALS: TEMP 98.1
[2018-11-23] MEDS ORDERED: HYDROcodone/APAP 7.5-325MG 1 EACH TAB PO PRN (08:33)
[2018-11-23] MEDS ORDERED: ASPIRIN 325 MG TAB PO SCH (09:00)
--- NOTE | 2018-11-23 09:29 | P.PN ---
Subjective Progress Note Date: 11/23/18 This is a 58-year-old female who is status post right total knee arthroplasty. This is postoperative day #2 and patient is seen and evaluated at bedside with Dr. Deshawn Cunningham. Patient was discharged home on 11/22/2018, but presented to the emergency room early this morning with increased pain in the right knee. Patient denies any injury, but states that she was concerned about the swelling and some drainage from her On-Q pump. Patient denies any fever/chills, numbness, weakness, tingling, abdominal pain, shortness of breath or chest pain. Objective - Vital Signs Vital signs: Vital Signs Temp 98.1 F 11/23/18 07:32 Pulse 95 11/23/18 07:32 Resp 15 11/23/18 07:32 BP 97/65 11/23/18 07:32 Pulse Ox 95 11/23/18 07:32 Intake & Output 11/22/18 11/23/18 11/23/18 18:59 06:59 18:59 Weight 77.111 kg - Exam Vital signs are stable. Patient is in no acute distress and is alert and oriented 3. Calf is soft and mildly tender to palpation. Dressing is clean, dry, and intact. There is mild swelling of the right lower extremity. There is no erythema. There is mild ecchymosis over the right knee. Patient has full foot and ankle motion without pain or difficulty. Neurovascular status and circulatory status are intact. Assessment and Plan (1) Post-op pain Current Visit: Yes Status: Acute Code(s): G89.18 - OTHER ACUTE POSTPROCEDURAL PAIN SNOMED Code(s): 202756200 (2) Osteoarthritis of right knee Current Visit: No Status: Acute Code(s): M17.11 - UNILATERAL PRIMARY OSTEOARTHRITIS, RIGHT KNEE SNOMED Code(s): 326445752771344 (3) S/P total knee arthroplasty Current Visit: No Status: Acute Code(s): Z96.659 - PRESENCE OF UNSPECIFIED ARTIFICIAL KNEE JOINT SNOMED Code(s): 5981838534600 Plan: #1 Continue with routine postoperative care and pain control, leave dressing in place for ten days. Patient's exam is as expected after total knee arthroplasty. There are no signs of infection. Due to mild tenderness in the right calf we will order a Doppler ultrasound to rule out DVT. #2 Anticoagulation with aspirin. #3 Physical therapy today. #4 Appreciate input from medicine. #5 Doppler ultrasound of the right lower extremity is pending. #6 Appreciate input from anesthesia regarding On-Q pump. #7 Anticipate discharge home with home care later today if Doppler ultrasound is negative, patient's pain is well controlled and the patient is able to work with physical therapy.
[2018-11-23] MEDS: KETOROLAC 30 MG/ML 1 ML VIAL IVP PRN ×2 (11:02→16:43)
[2018-11-23] MEDS: HYDROcodone/APAP 7.5-325MG 1 EACH TAB PO PRN ×2 (11:02→12:43)
[2018-11-23 11:20] VITALS: BMI 28.3
--- NOTE | 2018-11-23 11:22 | US ---
EXAMINATION TYPE: US venous doppler duplex LE RT DATE OF EXAM: 11/23/2018 10:53 AM COMPARISON: NONE CLINICAL HISTORY: pain. total knee 2 days ago, pain and swelling, no h/o dvt SIDE PERFORMED: Right TECHNIQUE: The lower extremity deep venous system is examined utilizing real time linear array sonog nhi with graded compression, doppler sonography and color-flow sonography. VESSELS IMAGED: External Iliac Vein (EIV) Common Femoral Vein Deep Femoral Vein Greater Saphenous Vein * Femoral Vein Popliteal Vein Small Saphenous Vein * Proximal Calf Veins (* superficial vessels) Right Leg: Appears negative for DVT IMPRESSION: 1. Right lower extremity ultrasound negative for deep venous thrombosis
--- NOTE | 2018-11-23 14:26 | P.PN ---
Progress Note - Text Progress Note Date: 11/23/18 Postoperative day # 3 status post total knee arthroplasty, under spinal anes thesia, and adductor canal catheter placed for postoperative analgesia. Currently on ropivacaine 0.2% 8 mL per hour and continuous infusion, catheter site local. There is some blood under the dressing VAS: 8/10 . Assessment and Plan: Will discontinue cathter given blood at the site.
--- NOTE | 2018-11-23 14:40 | P.DS ---
Providers Date of admission: 11/23/18 03:14 Expected date of discharge: 11/23/18 Attending physician: Deshawn Cunningham Primary care physician: Sandrita Raphael - Discharge Diagnosis(es) (1) Post-op pain Current Visit: Yes Status: Acute (2) Osteoarthritis of right knee Current Visit: No Status: Acute (3) S/P total knee arthroplasty Current Visit: No Status: Acute Hospital Course: This is a 58-year-old female who is status post right total knee arthroplasty on 11/21/2018. Patient was discharged home on 11/22/2018. Patient was readmitted on 11/23/2018 through the emergency room for pain control. The patient is doing well postoperatively. Labs and vital signs are stable on day of discharge. A Doppler ultrasound of the right lower extremity is negative for DVT. Patient's pain medication was adjusted and her pain has improved. Patient has been up and walking with physical therapy. On-Q pump has been removed and evaluated by anesthesia. On day of discharge patient's knee incision is healing well. There is minimal erythema. There is no drainage noted at this time. There is minimal soft tissue swelling to the knee. Patient has full foot and ankle motion without difficulty or pain. Calf is soft and nontender to palpation. Neurovascular status to the right lower extremity is intact. Patient is discharged home in good condition. Opioid start talking form is reviewed and signed at patient bedside. Please see med rec for accurate list of home medications. Patient Condition at Discharge: Serious Plan - Discharge Summary New Discharge Prescriptions: New HYDROcodone/APAP 7.5-325MG [Marshall 7.5-325] 1 - 2 tab PO Q6H PRN #30 tab PRN Reason: Pain Ketorolac [Toradol] 10 mg PO Q6HR #12 tab No Action Ipratropium Nebulized [Atrovent Nebulized 0.2 MG/ML] 0.5 mg INHALATION RT-TID Albuterol Nebulized [Ventolin Nebulized] 2.5 mg INHALATION RT-TID PRN PRN Reason: Shortness Of Breath Omeprazole 40 mg PO HS Estradiol [Estrace] 1 mg PO DAILY Gabapentin 600 mg PO TID Cyclobenzaprine [Flexeril] 10 mg PO HS Amitriptyline HCl [Elavil] 75 mg PO HS Albuterol Inhaler [Ventolin Hfa Inhaler] 2 puff INHALATION RT-Q6H PRN PRN Reason: Shortness Of Breath Nitroglycerin Sl Tabs [Nitrostat] 0.4 mg SUBLINGUAL Q5M PRN #25 tab PRN Reason: Chest Pain Budesonide [Pulmicort] 0.25 mg INHALATION RT-BID Ezetimibe [Zetia] 10 mg PO DAILY traMADol HCL [Ultram] 50 mg PO Q3H PRN PRN Reason: Pain Cbd Oil 1 applic PO DAILY Aspirin 325 mg PO BID #60 tab Sennosides [Senokot] 8.6 mg PO BID Discharge Medication List Albuterol Inhaler [Ventolin Hfa Inhaler] 2 puff INHALATION RT-Q6H PRN 03/02/15 [History] Albuterol Nebulized [Ventolin Nebulized] 2.5 mg INHALATION RT-TID PRN 03/02/15 [History] Amitriptyline HCl [Elavil] 75 mg PO HS 03/02/15 [History] Cyclobenzaprine [Flexeril] 10 mg PO HS 03/02/15 [History] Estradiol [Estrace] 1 mg PO DAILY 03/02/15 [History] Gabapentin 600 mg PO TID 03/02/15 [History] Ipratropium Nebulized [Atrovent Nebulized 0.2 MG/ML] 0.5 mg INHALATION RT-TID 03/02/15 [History] Omeprazole 40 mg PO HS 03/02/15 [History] Nitroglycerin Sl Tabs [Nitrostat] 0.4 mg SUBLINGUAL Q5M PRN #25 tab 03/04/15 [Rx] Budesonide [Pulmicort] 0.25 mg INHALATION RT-BID 01/01/16 [History] Cbd Oil 1 applic PO DAILY 11/14/18 [History] Ezetimibe [Zetia] 10 mg PO DAILY 11/14/18 [History] traMADol HCL [Ultram] 50 mg PO Q3H PRN 11/14/18 [History] Aspirin 325 mg PO BID #60 tab 11/22/18 [Rx] HYDROcodone/APAP 7.5-325MG [Marshall 7.5-325] 1 - 2 tab PO Q6H PRN #30 tab 11/23/18 [Rx] Ketorolac [Toradol] 10 mg PO Q6HR #12 tab 11/23/18 [Rx] Sennosides [Senokot] 8.6 mg PO BID 11/23/18 [History] Follow up Appointment(s)/Referral(s): Sandrita Raphael MD [Primary Care Provider] - 1-2 days Deshawn Cunningham DO [Doctor of Osteopathic Medicine] - 2 Weeks Activity/Diet/Wound Care/Special Instructions: Weightbearing as tolerated with a walker. CPM 5-6h daily. Leave dressing intact. May be removed by home care nurse or by patient in 10 days. May shower with dressing on. Continue Aspirin 325mg twice daily x30 days for anticoagulation. Recommend use of compression stockings daily for at least 2 weeks during the day to help prevent swelling and blood clots. May remove at night before sleeping. Please follow up with [facility] and call with any questions or concerns, . Discharge Disposition: HOME WITH HOME HEALTH SERVICES
[2018-11-23 14:46] VITALS: BP 107/74; PULSE 94; RESP 16
== END 2018-11-23 17:22 | disposition home health service (06) ==
LOC: EC 23:33 → 4SSUR 11-23 03:14
PROVIDERS: ADMIT Orthopaedic Surgery; ATTEND Orthopaedic Surgery
DX: G89.18 Other acute postprocedural pain (principal); M25.561 Pain in right knee; Z96.651 Presence of right artificial knee joint; K21.9 Gastro-esophageal reflux disease without esophagitis; J44.9 Chronic obstructive pulmonary disease, unspecified; I25.10 Atherosclerotic heart disease of native coronary artery without angina pectoris; E78.5 Hyperlipidemia, unspecified; M79.7 Fibromyalgia; F17.200 Nicotine dependence, unspecified, uncomplicated; M17.11 Unilateral primary osteoarthritis, right knee; Z97.8 Presence of other specified devices; Z79.890 Hormone replacement therapy; Z79.899 Other long term (current) drug therapy; Z79.82 Long term (current) use of aspirin; Z79.51 Long term (current) use of inhaled steroids; Z88.5 Allergy status to narcotic agent; Z85.118 Personal history of other malignant neoplasm of bronchus and lung; Z90.710 Acquired absence of both cervix and uterus
CPT/HCPCS: 96376 ×2; 96375 ×2; 96374; 99284; 97161; 93971; G0378; J2270; J2405; J1885

== ENCOUNTER 2019-12-16 09:27 | Inpatient (IN) | payer MEDICARE ==
[2019-12-16] MEDS ORDERED: ACETAMINOPHEN TAB 500 MG TAB PO STA (10:02)
[2019-12-16] MEDS ORDERED: IPRATROPIUM-ALBUTEROL 3 ML NEB INHALATION STA (10:02)
--- NOTE | 2019-12-16 10:05 | ED ---
General Adult HPI - General Chief complaint: Shortness of Breath Stated complaint: cough and fever Time Seen by Provider: 12/16/19 09:40 Source: patient, RN notes reviewed Mode of arrival: ambulatory Limitations: no limitations - History of Present Illness Initial comments: Patient is a pleasant 59-year-old female presenting to the emergency Department with complaints of cough and difficult to breathing. Onset of symptoms was a couple of days ago. Patient had fever this morning. Patient does have history of COPD with somewhat similar symptoms previously. No leg pain or leg swelling. Patient did have rotator cuff surgery done just under 2 weeks ago on the right side. No extremity pain or swelling. No chest pain. - Related Data Home Medications Medication Instructions Recorded Confirmed Albuterol Inhaler (Mhu) [Ventolin 2 puff INHALATION RT-Q6H PRN 03/02/15 11/23/18 Hfa Inhaler (Mhu)] Albuterol Nebulized [Ventolin 2.5 mg INHALATION RT-TID PRN 03/02/15 11/23/18 Nebulized] Amitriptyline HCl [Elavil] 75 mg PO HS 03/02/15 11/23/18 Cyclobenzaprine [Flexeril] 10 mg PO HS 03/02/15 11/23/18 Gabapentin 600 mg PO TID 03/02/15 11/23/18 Ipratropium Nebulized [Atrovent 0.5 mg INHALATION RT-TID 03/02/15 11/23/18 Nebulized 0.2 MG/ML] Omeprazole 40 mg PO HS 03/02/15 11/23/18 estradioL [Estrace] 1 mg PO DAILY 03/02/15 11/23/18 Budesonide [Pulmicort] 0.25 mg INHALATION RT-BID 01/01/16 11/23/18 Cbd Oil 1 applic PO DAILY 11/14/18 11/23/18 Ezetimibe [Zetia] 10 mg PO DAILY 11/14/18 11/23/18 traMADol HCL [Ultram] 50 mg PO Q3H PRN 11/14/18 11/23/18 Sennosides [Senokot] 8.6 mg PO BID 11/23/18 11/23/18 Previous Rx's Medication Instructions Recorded Nitroglycerin Sl Tabs [Nitrostat] 0.4 mg SUBLINGUAL Q5M PRN #25 tab 03/04/15 Aspirin 325 mg PO BID #60 tab 11/22/18 HYDROcodone/APAP 7.5-325MG [[place] 1 - 2 tab PO Q6H PRN #30 tab 11/23/18 7.5-325] Ketorolac [Toradol] 10 mg PO Q6HR #12 tab 11/23/18 Allergies Allergy/AdvReac Type Severity Reaction Status Date / Time codeine Allergy Rash/Hives, Verified 12/16/19 09:37 VOMITING hydromorphone HCl Allergy Anaphylaxis Verified 12/16/19 09:37 [From Dilaudid] Review of Systems ROS Statement: Those systems with pertinent positive or pertinent negative responses have been documented in the HPI. ROS Other: All systems not noted in ROS Statement are negative. Constitutional: Reports: fever, chills Eyes: Denies: eye pain ENT: Denies: ear pain Respiratory: Reports: cough, dyspnea Cardiovascular: Denies: chest pain, palpitations Endocrine: Reports: fatigue Gastrointestinal: Denies: abdominal pain Genitourinary: Denies: dysuria Musculoskeletal: Denies: back pain Skin: Denies: rash Neurological: Denies: weakness Past Medical History Past Medical History: Coronary Artery Disease (CAD), Cancer, COPD, GERD/Reflux, Hyperlipidemia, Osteoarthritis (OA) Additional Past Medical History / Comment(s): Fibromyalgia, lung cancer History of Any Multi-Drug Resistant Organisms: None Reported Past Surgical History: Back Surgery, Section, Heart Catheterization With Stent, Hysterectomy Additional Past Surgical History / Comment(s): RIGHT KNEE replace , LUNG BIOPSY, rt shoulder, abd lap Past Anesthesia/Blood Transfusion Reactions: Motion Sickness, Postoperative Nausea & Vomiting (PONV) Date of Last Stent Placement:: 2016 Past Psychological History: No Psychological Hx Reported Smoking Status: Never smoker Past Alcohol Use History: None Reported Past Drug Use History: None Reported - Past Family History Mother Family Medical History: No Reported History General Exam Limitations: no limitations General appearance: alert, in no apparent distress Head exam: Present: normocephalic Eye exam: Present: normal appearance Neck exam: Present: normal inspection Respiratory exam: Present: wheezes, rhonchi Cardiovascular Exam: Present: tachycardia GI/Abdominal exam: Present: soft. Absent: tenderness Extremities exam: Present: normal inspection, other (Sling supporting the right arm). Absent: pedal edema, calf tenderness Neurological exam: Present: alert Psychiatric exam: Present: normal affect, normal mood Skin exam: Present: normal color Course Vital Signs 12/16/19 12/16/19 12/16/19 09:35 09:42 11:06 Temperature 100.6 F H Pulse Rate 122 H 112 H Respiratory 18 18 Rate Blood Pressure 115/66 O2 Sat by Pulse 95 Oximetry 12/16/19 11:11 Temperature Pulse Rate 116 H Respiratory Rate Blood Pressure O2 Sat by Pulse Oximetry - Reevaluation(s) Reevaluation #1: 12/16/19 11:32 Patient does meet sepsis criteria diagnosed at 11:30 AM. Blood culture and lactic acid ordered. IV antibiotics will be ordered. Medical Decision Making - Medical Decision Making Patient reevaluated. Patient still having wheezing and tachycardia. Patient and family updated on results and plan. Dr. guerra paged for admission covering for Dr. Raphael. - Lab Data Result diagrams: 12/16/19 10:30 12/16/19 10:30 Lab Results 12/16/19 12/16/19 12/16/19 Range/Units 10:30 10:30 10:30 WBC 15.8 H (3.8-10.6) k/uL RBC 4.16 (3.80-5.40) m/uL Hgb 13.0 (11.4-16.0) gm/dL Hct 39.0 (34.0-46.0) % MCV 93.6 (80.0-100.0) fL MCH 31.3 (25.0-35.0) pg MCHC 33.4 (31.0-37.0) g/dL RDW 13.1 (11.5-15.5) % Plt Count 436 (150-450) k/uL Neutrophils % 85 % Lymphocytes % 9 % Monocytes % 4 % Eosinophils % 1 % Basophils % 1 % Neutrophils # 13.4 H (1.3-7.7) k/uL Lymphocytes # 1.5 (1.0-4.8) k/uL Monocytes # 0.6 (0-1.0) k/uL Eosinophils # 0.1 (0-0.7) k/uL Basophils # 0.1 (0-0.2) k/uL Sodium 133 L (137-145) mmol/L Potassium 4.3 (3.5-5.1) mmol/L Chloride 104 (98-107) mmol/L Carbon Dioxide 21 L (22-30) mmol/L Anion Gap 8 mmol/L BUN 17 (7-17) mg/dL Creatinine 0.76 (0.52-1.04) mg/dL Est GFR (CKD-EPI)AfAm >90 (>60 ml/min/1.73 sqM) Est GFR (CKD-EPI)NonAf 87 (>60 ml/min/1.73 sqM) Glucose 155 H (74-99) mg/dL Plasma Lactic Acid Chilo (0.7-2.0) mmol/L Calcium 9.0 (8.4-10.2) mg/dL Total Bilirubin 0.6 (0.2-1.3) mg/dL AST 112 H (14-36) U/L ALT 68 H (4-34) U/L Alkaline Phosphatase 223 H (38-126) U/L Total Protein 6.6 (6.3-8.2) g/dL Albumin 3.6 (3.5-5.0) g/dL Influenza Type A RNA Not Detected (Not Detectd) Influenza Type B (PCR) Not Detected (Not Detectd) 12/16/19 Range/Units 10:30 WBC (3.8-10.6) k/uL RBC (3.80-5.40) m/uL Hgb (11.4-16.0) gm/dL Hct (34.0-46.0) % MCV (80.0-100.0) fL MCH (25.0-35.0) pg MCHC (31.0-37.0) g/dL RDW (11.5-15.5) % Plt Count (150-450) k/uL Neutrophils % % Lymphocytes % % Monocytes % % Eosinophils % % Basophils % % Neutrophils # (1.3-7.7) k/uL Lymphocytes # (1.0-4.8) k/uL Monocytes # (0-1.0) k/uL Eosinophils # (0-0.7) k/uL Basophils # (0-0.2) k/uL Sodium (137-145) mmol/L Potassium (3.5-5.1) mmol/L Chloride (98-107) mmol/L Carbon Dioxide (22-30) mmol/L Anion Gap mmol/L BUN (7-17) mg/dL Creatinine (0.52-1.04) mg/dL Est GFR (CKD-EPI)AfAm (>60 ml/min/1.73 sqM) Est GFR (CKD-EPI)NonAf (>60 ml/min/1.73 sqM) Glucose (74-99) mg/dL Plasma Lactic Acid Chilo 1.5 (0.7-2.0) mmol/L Calcium (8.4-10.2) mg/dL Total Bilirubin (0.2-1.3) mg/dL AST (14-36) U/L ALT (4-34) U/L Alkaline Phosphatase (38-126) U/L Total Protein (6.3-8.2) g/dL Albumin (3.5-5.0) g/dL Influenza Type A RNA (Not Detectd) Influenza Type B (PCR) (Not Detectd) - Radiology Data Radiology results: image reviewed (Chest x-ray shows right hilar and upper lobe thickening and consolidation consistent with history of previous lung cancer and therapy. No acute infiltrate.) Critical Care Time Critical Care Time: Yes Total Critical Care Time: 31 Disposition Clinical Impression: COPD (chronic obstructive pulmonary disease), Sepsis Disposition: ADMITTED IP TO THIS HOSP Is patient prescribed a controlled substance at d/c from ED?: No Referrals: Sandrita Raphael MD [Primary Care Provider] - 1-2 days Decision Time: 11:33
[2019-12-16 10:43] LABS: Basophils # (A) 0.1 k/uL (0-0.2); Basophils % (A) 1 %; Eosinophils # (A) 0.1 k/uL (0-0.7); Eosinophils % (A) 1 %; Lymphocytes # (A) 1.5 k/uL (1.0-4.8); Lymphocytes % (A) 9 %; MCH 31.3 pg (25.0-35.0); MCHC 33.4 g/dL (31.0-37.0); MCV 93.6 fL (80.0-100.0); Mean Platelet Volume 6.7; Monocytes # (A) 0.6 k/uL (0-1.0); Monocytes % (A) 4 %; Neutrophils # (A) 13.4 k/uL (1.3-7.7); Neutrophils % (A) 85 %; Platelet Count 436 k/uL (150-450); RBC 4.16 m/uL (3.80-5.40); RDW 13.1 % (11.5-15.5); WBC 15.8 k/uL (3.8-10.6)
--- NOTE | 2019-12-16 10:52 | XR ---
EXAMINATION TYPE: XR chest 2V DATE OF EXAM: 12/16/2019 COMPARISON: 2919 TECHNIQUE: PA and lateral views submitted. HISTORY: Postop FINDINGS: There appears to be volume loss on the right with persistent right-sided hilar thickening. Left lung is clear. Underlying COPD noted. Findings are similar to the prior exam of 2016. IMPRESSION: 1. Right hilar and upper lobe areas of thickening and consolidation are similar to 2016 may be relate d to previous history of therapy and lung cancer. No definite acute infiltrate.
[2019-12-16 10:54] LABS: ALT 68 U/L (4-34); AST 112 U/L (14-36); African American GFR (CKD) >90 (>60 ml/min/1.73 sqM); Albumin 3.6 g/dL (3.5-5.0); Alkaline Phosphatase 223 U/L (38-126); Anion Gap 8 mmol/L; Blood Urea Nitrogen 17 mg/dL (7-17); Carbon Dioxide 21 mmol/L (22-30); Chloride 104 mmol/L (98-107); Glucose 155 mg/dL (74-99); Non-African American GFR(CKD) 87 (>60 ml/min/1.73 sqM); Potassium 4.3 mmol/L (3.5-5.1); Sodium 133 mmol/L (137-145); Total Bilirubin 0.6 mg/dL (0.2-1.3); Total Protein 6.6 g/dL (6.3-8.2)
[2019-12-16 11:28] LABS: INR 0.9 (<1.2); Partial Thromboplastin Time 28.8 sec (22.0-30.0); Prothrombin Time 9.7 sec (9.0-12.0)
[2019-12-16] MEDS ORDERED: cefTRIAXone IN SWFI 1,000 MG/10 ML SYRINGE IVP STA (11:33)
[2019-12-16] MEDS ORDERED: IPRATROPIUM-ALBUTEROL 3 ML NEB INHALATION PRN (11:34)
[2019-12-16 11:36] LABS: D-Dimer 0.92 mg/L FEU (<0.60)
[2019-12-16] MEDS ORDERED: IPRATROPIUM-ALBUTEROL 3 ML NEB INHALATION SCH (12:00)
[2019-12-16 12:33] LABS: Glucose,Whole Blood 95 mg/dL (75-99)
--- NOTE | 2019-12-16 13:14 | CT ---
EXAMINATION TYPE: CT angio chest DATE OF EXAM: 12/16/2019 12:04 PM COMPARISON: CT 05/04/2016. HISTORY: COPD, Sepsis. History of lung cancer and hematemesis. CT DLP: 453.6 mGycm Automated exposure control for dose reduction was used. CONTRAST: CTA scan of the thorax is performed with IV Contrast, patient injected with 100 mL of Isovue 370, pul monary embolism protocol. FINDINGS: LUNGS: Prior post surgical/treatment changes involving the right upper lobe with moderate scarring, c ompressive consolidations and volume loss are again seen. The remainder of the lungs are otherwise cl ear. No pleural effusion or pneumothorax MEDIASTINUM: There is satisfactory enhancement of the pulmonary artery and its branches, there is no CT evidence for pulmonary embolism. There are no greater than 1 cm hilar or mediastinal lymph nodes. No pericardial effusion is seen. OTHER: No additional significant abnormality is seen. IMPRESSION: No evidence of pulmonary emboli. Redemonstrated postsurgical/treatment changes involving the right upper lobe. Otherwise no acute card iopulmonary abnormality.
[2019-12-16] MEDS: INSULIN ASPART (NovoLOG) 100 UNIT/ML VIAL SQ SCH ×3 (13:15→21:09)
[2019-12-16] MEDS: methylPREDNISolone SOD SUCCI 125 MG/2 ML VIAL IV SCH ×3 (13:18→23:05)
[2019-12-16] MEDS ORDERED: traMADol 50 MG TAB PO PRN (13:20)
--- NOTE | 2019-12-16 13:51 | P.CNPUL ---
History of Present Illness Consult date: 12/16/19 Reason for consult: dyspnea History of present illness: This is a 59-year-old here patient with known history of COPD who comes in for worsening shortness of breath. The patient underwent a rotator cuff surgery approximately 2 weeks ago on the right side. No joint pain. No swelling. No chest pain. No pleurisy. No hemoptysis. She has been treated for COPD on outpatient basis and the patient utilizes Pulmicort Respules twice a day added to her HFA in the form of Ventolin and nebulized treatment on history basis. The patient's white cell count was 15.8 without admission. BUN is 17 with a creatinine of 0.7. Coagulation profile is within normal limits. D-dimer was 0.92, and the liver function tests showed an AST of 112, ALT of 68, alkaline phosphatase of 223, and the proBNP level of 92. The influenza screen was negative for influenza A and B. This CT angiogram was done in the emergency department and it showed no evidence of any pulmonary embolism. No pericardial effusion. The patient has some postsurgical/treatment changes in the right upper lobe with moderate amount of scarring and compressive consolidation and volume loss and the remainder of the lungs were clear. 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 and the patient was treated with combined chemoradiation t herapy approximately 6 years ago and she's been in remission, COPD moderate FEV1 of 90% of predicted, acid reflux, degenerative arthritis, coronary artery disease, hyperlipidemia History of Any Multi-Drug Resistant Organisms: None Reported Past Surgical History: Back Surgery, Section, Heart Catheterization With Stent, Hysterectomy Additional Past Surgical History / Comment(s): RIGHT KNEE replace , LUNG BIOPSY, rt shoulder, abd lap Past Anesthesia/Blood Transfusion Reactions: Motion Sickness, Postoperative Nausea & Vomiting (PONV) Date of Last Stent Placement:: 2016 Past Psychological History: No Psychological Hx Reported Smoking Status: Never smoker Past Alcohol Use History: None Reported Past Drug Use History: None Reported - Past Family History Mother Family Medical History: No Reported History Medications and Allergies Home Medications Medication Instructions Recorded Confirmed Type Amitriptyline HCl [Elavil] 75 mg PO HS 03/02/15 12/16/19 History Cyclobenzaprine [Flexeril] 10 mg PO HS 03/02/15 12/16/19 History Gabapentin 600 mg PO TID 03/02/15 12/16/19 History Omeprazole 40 mg PO HS 03/02/15 12/16/19 History estradioL [Estrace] 1 mg PO DAILY 03/02/15 12/16/19 History Nitroglycerin Sl Tabs [Nitrostat] 0.4 mg SUBLINGUAL Q5M PRN #25 tab 03/04/15 12/16/19 Rx Budesonide [Pulmicort] 0.25 mg INHALATION RT-BID 01/01/16 12/16/19 History Ezetimibe [Zetia] 10 mg PO HS 11/14/18 12/16/19 History traMADol HCL [Ultram] 50 mg PO Q3H PRN 11/14/18 12/16/19 History Acetaminophen Tab [Tylenol] 650 mg PO Q6H 12/16/19 12/16/19 History Albuterol Inhaler [Ventolin Hfa 2 puff INHALATION RT-Q6H PRN 12/16/19 12/16/19 History Inhaler] Aspirin 325 mg PO ONCE PRN 12/16/19 12/16/19 History Ibuprofen [Motrin] 800 mg PO BID PRN 12/16/19 12/16/19 History Ipratropium-Albuterol Nebulize 3 ml INHALATION RT-TID 12/16/19 12/16/19 History [Duoneb 0.5 mg-3 mg/3 ml Soln] Turmeric Root Extract [Turmeric] 1,000 mg PO DAILY 12/16/19 12/16/19 History Allergies Allergy/AdvReac Type Severity Reaction Status Date / Time codeine Allergy Rash/Hives, Verified 12/16/19 12:25 VOMITING hydromorphone HCl Allergy Anaphylaxis Verified 12/16/19 12:25 [From Dilaudid] Physical Exam Vitals: Vital Signs Temp Pulse Pulse Resp BP BP Pulse Ox 12/16/19 13:08 98.6 F 107 H 20 115/73 95 12/16/19 12:09 99.8 F H 101 H 18 92/60 97 12/16/19 12:00 99.8 F H 101 H 18 92/60 97 12/16/19 11:11 116 H 12/16/19 11:06 112 H 12/16/19 10:37 18 12/16/19 09:42 18 12/16/19 09:35 100.6 F H 122 H 18 115/66 95 Intake and Output 12/15/19 12/16/19 12/16/19 22:59 06:59 14:59 Other: Weight 79.379 kg The patient appeared well nourished and normally developed. Vital signs as documented. Head exam is unremarkable. No scleral icterus or corneal arcus noted. Neck is without jugular venous distension, thyromegaly, or carotid bruits. Carotid upstrokes are brisk bilaterally. Lungs are clear to auscultation and percussion. Cardiac exam reveals the PMI to be normally sized and situated. Rhythm is regular. First and second heart sounds normal. No murmurs, rubs or gallops. Abdominal exam reveals normal bowel sounds, no masses, no organomegaly and no aortic enlargement. Extremities are nonedematous and both femoral and pedal pulses are normal.Examination of the skin revealed no evidence of significant rashes, suspicious appearing nevi or other concerning lesions.Neurologically, the patient is awake and alert and the patient does not have any focal neurological deficit. Cranial nerves are essentially intact. Results - Laboratory Findings CBC and BMP: 12/16/19 10:30 12/16/19 10:30 ABG WBC 15.8 k/uL (3.8-10.6) H 12/16/19 10:30 RBC 4.16 m/uL (3.80-5.40) 12/16/19 10:30 Hgb 13.0 gm/dL (11.4-16.0) 12/16/19 10:30 Hct 39.0 % (34.0-46.0) 12/16/19 10:30 MCV 93.6 fL (80.0-100.0) 12/16/19 10:30 MCH 31.3 pg (25.0-35.0) 12/16/19 10:30 MCHC 33.4 g/dL (31.0-37.0) 12/16/19 10:30 RDW 13.1 % (11.5-15.5) 12/16/19 10:30 Plt Count 436 k/uL (150-450) 12/16/19 10:30 Neutrophils % 85 % 12/16/19 10:30 Lymphocytes % 9 % 12/16/19 10:30 Monocytes % 4 % 12/16/19 10:30 Eosinophils % 1 % 12/16/19 10:30 Basophils % 1 % 12/16/19 10:30 Neutrophils # 13.4 k/uL (1.3-7.7) H 12/16/19 10:30 Lymphocytes # 1.5 k/uL (1.0-4.8) 12/16/19 10:30 Monocytes # 0.6 k/uL (0-1.0) 12/16/19 10:30 Eosinophils # 0.1 k/uL (0-0.7) 12/16/19 10:30 Basophils # 0.1 k/uL (0-0.2) 12/16/19 10:30 PT 9.7 sec (9.0-12.0) 12/16/19 10:30 INR 0.9 (<1.2) 12/16/19 10:30 APTT 28.8 sec (22.0-30.0) 12/16/19 10:30 D-Dimer 0.92 mg/L FEU (<0.60) H 12/16/19 10:30 Sodium 133 mmol/L (137-145) L 12/16/19 10:30 Potassium 4.3 mmol/L (3.5-5.1) 12/16/19 10:30 Chloride 104 mmol/L (98-107) 12/16/19 10:30 Carbon Dioxide 21 mmol/L (22-30) L 12/16/19 10:30 Anion Gap 8 mmol/L 12/16/19 10:30 BUN 17 mg/dL (7-17) 12/16/19 10:30 Creatinine 0.76 mg/dL (0.52-1.04) 12/16/19 10:30 Est GFR (CKD-EPI)AfAm >90 (>60 ml/min/1.73 sqM) 12/16/19 10:30 Est GFR (CKD-EPI)NonAf 87 (>60 ml/min/1.73 sqM) 12/16/19 10:30 Glucose 155 mg/dL (74-99) H 12/16/19 10:30 POC Glucose (mg/dL) 95 mg/dL (75-99) 12/16/19 12:30 POC Glu Stop Attacher Ashely Arambula 12/16/19 12:30 Plasma Lactic Acid Chilo 1.5 mmol/L (0.7-2.0) 12/16/19 10:30 Calcium 9.0 mg/dL (8.4-10.2) 12/16/19 10:30 Total Bilirubin 0.6 mg/dL (0.2-1.3) 12/16/19 10:30 AST 112 U/L (14-36) H 12/16/19 10:30 ALT 68 U/L (4-34) H 12/16/19 10:30 Alkaline Phosphatase 223 U/L (38-126) H 12/16/19 10:30 NT-Pro-B Natriuret Pep 92 pg/mL 12/16/19 10:30 Total Protein 6.6 g/dL (6.3-8.2) 12/16/19 10:30 Albumin 3.6 g/dL (3.5-5.0) 12/16/19 10:30 Influenza Type A RNA Not Detected (Not Detectd) 12/16/19 10:30 Influenza Type B (PCR) Not Detected (Not Detectd) 12/16/19 10:30 PT/INR, D-dimer PT 9.7 sec (9.0-12.0) 12/16/19 10:30 INR 0.9 (<1.2) 12/16/19 10:30 D-Dimer 0.92 mg/L FEU (<0.60) H 12/16/19 10:30 Abnormal lab findings: Abnormal Labs 12/16/19 12/16/19 12/16/19 10:30 10:30 10:30 WBC 15.8 H Neutrophils # 13.4 H D-Dimer 0.92 H Sodium 133 L Carbon Dioxide 21 L Glucose 155 H AST 112 H ALT 68 H Alkaline Phosphatase 223 H - Diagnostic Findings Chest x-ray: image reviewed CT scan - chest: image reviewed Assessment and Plan Plan: 1 shortness of breath likely on the basis of COPD exacerbation. The patient had a low-grade fever of 100.6. CT angiographic shows no evidence of any pneumonia. This EKG exam shows no evidence of any pulmonary embolism. 2 COPD mild with a baseline FEV1 of 90% predicted 3 remote history of small cell lung cancer post-chemo radiation therapy and the patient is currently in remission 4 coronary artery disease with previous coronary stenting 5 recent rotator cuff shoulder surgery on the right 6 hypertension 7 hyperlipidemia 8 osteoarthritis 9 mild leukocytosis with a white cell count of 15 10 transaminitis with some mild elevation of alkaline phosphatase, AST and ALT. 11 Influenza screen was negative. Plan Cover the patient with accommodation Rocephin and Zithromax DuMikki about treatment [id number] IV Solu-Medrol at a dose of 60 mg every 6 hours Check ultrasound of the gallbladder Awaiting coronavirus covid 19 testing by PCR we'll continue to follow
[2019-12-16] MEDS ORDERED: SENNOSIDES 8.6 MG TAB PO PRN (13:56)
[2019-12-16] MEDS ORDERED: ACETAMINOPHEN TAB 325 MG TAB PO SCH (14:00)
[2019-12-16] MEDS ORDERED: NITROGLYCERIN SL TABS 0.4 MG TAB SUBLINGUAL PRN (14:27)
[2019-12-16] MEDS ORDERED: ASPIRIN 325 MG TAB PO PRN (14:27)
[2019-12-16] MEDS: GABAPENTIN 300 MG CAP PO SCH ×2 (15:10→21:08)
[2019-12-16] MEDS: IPRATROPIUM-ALBUTEROL 3 ML NEB INHALATION SCH ×2 (16:27→19:31)
[2019-12-16 16:36] LABS: Glucose,Whole Blood 147 mg/dL (75-99)
[2019-12-16] MEDS: ACETAMINOPHEN TAB 325 MG TAB PO PRN (18:08)
[2019-12-16] MEDS: traMADol 50 MG TAB PO PRN ×2 (18:09→23:04)
[2019-12-16] MEDS: BUDESONIDE 0.25 MG/2 ML NEBU INHALATION SCH (19:31)
[2019-12-16 20:25] LABS: Glucose,Whole Blood 168 mg/dL (75-99)
[2019-12-16] MEDS: EZETIMIBE 10 MG TAB PO SCH (21:07)
[2019-12-16] MEDS: AMITRIPTYLINE HCL 25 MG TAB PO SCH (21:07)
[2019-12-16] MEDS: CYCLOBENZAPRINE 10 MG TAB PO SCH (21:08)
[2019-12-16] MEDS: DOCUSATE 100 MG CAP PO SCH (21:08)
[2019-12-16] MEDS: SODIUM CHLORIDE 0.9% 1,000 ML IV SCH (22:47)
--- NOTE | 2019-12-16 23:27 | P.HPIM ---
History of Present Illness This is a pleasant 59 years old female with past medical history of coronary artery disease, COPD, GERD, hyperlipidemia, osteoarthritis, fibromyalgia, she was previously diagnosed with lung cancer 6 years ago, status post chemo rad iotherapy currently she is in remission as per documentation. Presents because of acute dyspnea associated with cough and no significant chest pain. Also patient has fever on presentation. And on auscultation patient has a started wheezing suspicious for acute COPD exacerbation. She is slightly tachycardic at 110, she is saturating 90s on room air. Blood pressure is low normal 94/57 She has leukocytosis of 15.8 K. D-dimer is elevated 0.92, sodium 133, rest of BMP were unremarkable. liver enzymes are slightly elevated AST/ALT. Inflow was has not detected. Chest x-ray showed no evidence of pneumonia. CTA of the chest: No PE Review of Systems CONSTITUTIONAL: No fever, no malaise, no fatigue. HEENT: No recent visual problems or hearing problems. Denied any sore throat. CARDIOVASCULAR: No orthopnea, PND, no palpitations, no syncope. PULMONARY: No chest wall tenderness, no hemoptysis. GASTROINTESTINAL: No diarrhea, no nausea, no vomiting, no abdominal pain. Normoactive bowel sounds. NEUROLOGICAL: No headaches, no weakness, no numbness. HEMATOLOGICAL: Denies any bleeding or petechiae. GENITOURINARY: Denies any burning micturition, frequency, or urgency. MUSCULOSKELETAL/RHEUMATOLOGICAL: Denies any joint pain, swelling, or any muscle pain. ENDOCRINE: Denies any polyuria or polydipsia. 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 and the patient was treated with combined chemoradiation therapy approximately 6 years ago and she's been in remission, COPD moderate FEV1 of 90% of predicted, acid reflux, degenerative arthritis, coronary artery disease, hyperlipidemia History of Any Multi-Drug Resistant Organisms: None Reported Past Surgical History: Back Surgery, Section, Heart Catheterization With Stent, Hysterectomy Additional Past Surgical History / Comment(s): RIGHT KNEE replace , LUNG BIOPSY, rt shoulder, abd lap Past Anesthesia/Blood Transfusion Reactions: Motion Sickness, Postoperative Nausea & Vomiting (PONV) Date of Last Stent Placement:: 2016 Past Psychological History: No Psychological Hx Reported Smoking Status: Never smoker Past Alcohol Use History: None Reported Past Drug Use History: None Reported - Past Family History Mother Family Medical History: No Reported History Medications and Allergies Home Medications Medication Instructions Recorded Confirmed Type RX: Amitriptyline HCl [Elavil] 75 mg PO HS 03/02/15 12/16/19 History RX: Cyclobenzaprine [Flexeril] 10 mg PO HS 03/02/15 12/16/19 History RX: Gabapentin 600 mg PO TID 03/02/15 12/16/19 History RX: Omeprazole 40 mg PO HS 03/02/15 12/16/19 History RX: estradioL [Estrace] 1 mg PO DAILY 03/02/15 12/16/19 History RX: Nitroglycerin Sl Tabs 0.4 mg SUBLINGUAL Q5M PRN #25 tab 03/04/15 12/16/19 Rx [Nitrostat] Budesonide [Pulmicort] 0.25 mg INHALATION RT-BID 01/01/16 12/16/19 History Ezetimibe [Zetia] 10 mg PO HS 11/14/18 12/16/19 History RX: traMADol HCL [Ultram] 50 mg PO Q3H PRN 11/14/18 12/16/19 History Acetaminophen Tab [Tylenol] 650 mg PO Q6H 12/16/19 12/16/19 History Ipratropium-Albuterol Nebulize 3 ml INHALATION RT-TID 12/16/19 12/16/19 History [Duoneb 0.5 mg-3 mg/3 ml Soln] RX: Albuterol Inhaler [Ventolin 2 puff INHALATION RT-Q6H PRN 12/16/19 12/16/19 History Hfa Inhaler] RX: Aspirin 325 mg PO ONCE PRN 12/16/19 12/16/19 History RX: Ibuprofen [Motrin] 800 mg PO BID PRN 12/16/19 12/16/19 History Turmeric Root Extract [Turmeric] 1,000 mg PO DAILY 12/16/19 12/16/19 History Allergies Allergy/AdvReac Type Severity Reaction Status Date / Time codeine Allergy Rash/Hives, Verified 12/16/19 12:25 VOMITING hydromorphone HCl Allergy Anaphylaxis Verified 12/16/19 12:25 [From Dilaudid] Physical Exam Vitals: Vital Signs Temp Pulse Pulse Pulse Resp BP BP 12/16/19 19:47 98.0 F 103 H 16 94/57 12/16/19 19:44 110 H 16 12/16/19 19:31 109 H 16 12/16/19 16:37 108 H 16 12/16/19 16:27 110 H 16 12/16/19 13:08 98.6 F 107 H 20 115/73 12/16/19 12:09 99.8 F H 101 H 18 92/60 12/16/19 12:00 99.8 F H 101 H 18 92/60 12/16/19 11:11 116 H 12/16/19 11:06 112 H 12/16/19 10:37 18 12/16/19 09:42 18 12/16/19 09:35 100.6 F H 122 H 18 115/66 Pulse Ox 12/16/19 19:47 97 12/16/19 19:44 12/16/19 19:31 12/16/19 16:37 12/16/19 16:27 95 12/16/19 13:08 95 12/16/19 12:09 97 12/16/19 12:00 97 12/16/19 11:11 12/16/19 11:06 12/16/19 10:37 12/16/19 09:42 12/16/19 09:35 95 Intake and Output 12/16/19 12/16/19 12/16/19 06:59 14:59 22:59 Other: # Voids 1 Weight 79.379 kg GENERAL: The patient is alert and oriented x3, not in any acute distress. Well developed, well nourished. HEENT: Pupils are round and equally reacting to light. EOMI. No scleral icterus. No conjunctival pallor. Normocephalic, atraumatic. No pharyngeal erythema. No thyromegaly. CARDIOVASCULAR: S1 and S2 present. No murmurs, rubs, or gallops. -PULMONARY: Chest is clear to auscultation, bilateral scattered wheezing ABDOMEN: Soft, nontender, nondistended, normoactive bowel sounds. No palpable organomegaly. MUSCULOSKELETAL: No joint swelling or deformity. EXTREMITIES: No cyanosis, clubbing, or pedal edema. NEUROLOGICAL: Gross neurological examination did not reveal any focal deficits. SKIN: No rashes. No petechiae Results CBC & Chem 7: 12/16/19 10:30 12/16/19 10:30 Labs: Abnormal Lab Results - Last 24 Hours (Table) 12/16/19 12/16/19 12/16/19 Range/Units 10:30 10:30 10:30 WBC 15.8 H (3.8-10.6) k/uL Neutrophils # 13.4 H (1.3-7.7) k/uL D-Dimer 0.92 H (<0.60) mg/L FEU Sodium 133 L (137-145) mmol/L Carbon Dioxide 21 L (22-30) mmol/L Glucose 155 H (74-99) mg/dL POC Glucose (mg/dL) (75-99) mg/dL AST 112 H (14-36) U/L ALT 68 H (4-34) U/L Alkaline Phosphatase 223 H (38-126) U/L 12/16/19 12/16/19 Range/Units 16:35 20:24 WBC (3.8-10.6) k/uL Neutrophils # (1.3-7.7) k/uL D-Dimer (<0.60) mg/L FEU Sodium (137-145) mmol/L Carbon Dioxide (22-30) mmol/L Glucose (74-99) mg/dL POC Glucose (mg/dL) 147 H 168 H (75-99) mg/dL AST (14-36) U/L ALT (4-34) U/L Alkaline Phosphatase (38-126) U/L Thrombosis Risk Factor Assmnt - Choose All That Apply Any of the Below Risk Factors Present?: Yes Each Factor Represents 1 point: Abnormal pulmonary function (COPD), Age 41-60 years, History of prior major surgery (<1month), Obesity (BMI >25), Serious lung disease incl. pneumonia (< 1month) Other Risk Factors: No Other congenital or acquired thrombophilia - If yes, enter type in comment: No Thrombosis Risk Factor Assessment Total Risk Factor Score: 5 Thrombosis Risk Factor Assessment Level: High Risk Assessment and Plan Assessment: Acute COPD exacerbation Acute tracheobronchitis Elevated liver enzymes, rule out gallbladder disease Hyperlipidemia Osteoarthritis GERD fibromyalgia History of lung cancer 6 years ago, status post chemo radiotherapy currently she is in remission as per documentation. Plan: This is a pleasant 59 years old female who presents for COPD exacerbation and to Lg Check her bronchitis. Continue with antibiotics, steroids, bronchodilators and oxygen as needed. Start gentle hydration for low normal blood pressure. Continue with pain management with Ultram and Tylenol. Continue with this. Follow-up recommendation by operations officer. Follow-up sputum culture. Rule out gallbladder disease Labs and medication were reviewed.. Continue same treatment. Continue with symptomatic treatment. Resume home medication. Monitor lytes and vitals. DVT and GI prophylaxis. Further recommendations of the clinical course of the patient DVT prophylaxis: Subcutaneous heparin GI Prophylaxis: Pepcid PT/OT: Pending Prognosis is guarded
[2019-12-17] MEDS: methylPREDNISolone SOD SUCCI 125 MG/2 ML VIAL IV SCH ×4 (05:13→23:02)
[2019-12-17 06:46] LABS: Basophils % (A) 0 %; Eosinophils % (A) 0 %; HCT 39.4 % (34.0-46.0); HGB 12.5 gm/dL (11.4-16.0); Lymphocytes # (A) 0.9 k/uL (1.0-4.8); Lymphocytes % (A) 7 %; MCH 29.3 pg (25.0-35.0); MCHC 31.7 g/dL (31.0-37.0); MCV 92.3 fL (80.0-100.0); Mean Platelet Volume 6.5; Monocytes # (A) 0.2 k/uL (0-1.0); Monocytes % (A) 1 %; Neutrophils % (A) 91 %; Platelet Count 463 k/uL (150-450); RBC 4.26 m/uL (3.80-5.40); RDW 13.3 % (11.5-15.5); WBC 13.1 k/uL (3.8-10.6)
[2019-12-17 07:26] LABS: Glucose,Whole Blood 164 mg/dL (75-99)
[2019-12-17] MEDS: DOCUSATE 100 MG CAP PO SCH ×2 (08:07→20:59)
[2019-12-17] MEDS: GABAPENTIN 300 MG CAP PO SCH ×3 (08:07→20:59)
[2019-12-17] MEDS: AZITHROMYCIN 500 MG TAB PO SCH (08:07)
[2019-12-17] MEDS: INSULIN ASPART (NovoLOG) 100 UNIT/ML VIAL SQ SCH ×4 (08:09→20:59)
[2019-12-17] MEDS: traMADol 50 MG TAB PO PRN ×4 (08:19→20:11)
--- NOTE | 2019-12-17 08:30 | US ---
EXAMINATION TYPE: US gallbladder DATE OF EXAM: 12/17/2019 COMPARISON: CT CLINICAL HISTORY: abnormal lft. EXAM MEASUREMENTS: Liver Length: 16.9 cm Gallbladder Wall: 0.3 cm CBD: 0.3 cm Right Kidney: 10.2 x 4.4 x 4.7 cm Pancreas: visualized portions wnl Liver: wnl Gallbladder: multiple mobile shadowing stones with shadowing Evidence for sonographic Worley's sign: Yes CBD: wnl Right Kidney: No hydronephrosis or masses seen IMPRESSION: Uncomplicated cholelithiasis.
[2019-12-17] MEDS: IPRATROPIUM-ALBUTEROL 3 ML NEB INHALATION SCH ×4 (08:31→19:08)
[2019-12-17] MEDS: BUDESONIDE 0.25 MG/2 ML NEBU INHALATION SCH ×2 (08:31→19:07)
[2019-12-17 09:31] LABS: African American GFR (CKD) 93.5 (60.0-200.0); Anion Gap 9.1 mmol/L (4.00-12.00); BUN/Creat Ratio 27.5 Ratio (12.00-20.00); Calcium 9.3 mg/dL (8.7-10.3); Carbon Dioxide 21.9 mmol/L (21.6-31.8); Non-African American GFR(CKD) 80.7 (60.0-200.0); Potassium 4.3 mmol/L (3.5-5.5)
[2019-12-17 11:29] LABS: Glucose,Whole Blood 176 mg/dL (75-99)
--- NOTE | 2019-12-17 11:34 | P.PN ---
Subjective Progress Note Date: 12/17/19 Principal diagnosis: Acute exacerbation of chronic obstructive pulmonary disease This is a 59-year-old here patient with known history of COPD who comes in for worsening shortness of breath. The patient underwent a rotator cuff surgery approximately 2 weeks ago on the right side. No joint pain. No swelling. No chest pain. No pleurisy. No hemoptysis. She has been treated for COPD on outpatient basis and the patient utilizes Pulmicort Respules twice a day added to her HFA in the form of Ventolin and nebulized treatment on history basis. The patient's white cell count was 15.8 without admission. BUN is 17 with a creatinine of 0.7. Coagulation profile is within normal limits. D-dimer was 0.92, and the liver function tests showed an AST of 112, ALT of 68, alkaline phosphatase of 223, and the proBNP level of 92. The influenza screen was negative for influenza A and B. This CT angiogram was done in the emergency department and it showed no evidence of any pulmonary embolism. No pericardial effusion. The patient has some postsurgical/treatment changes in the right upper lobe with moderate amount of scarring and compressive consolidation and volume loss and the remainder of the lungs were clear. 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 The patient is seen today 12/17/2019 in follow-up on the regular medical floor. She is awake and alert in no acute distress. Breathing a bit easier today compared to yesterday. Maintaining good O2 saturation in the 90s on room air. White count 13.1. Hemoglobin 12.5. Sodium 137. Patellar seen 4.3. Creatinine 0.8. She remains on DuoNeb inhalations, Pulmicort and the form is inhalations, IV Solu-Medrol. Empiric antibiotics in the form of ceftriaxone. Objective - Vital Signs Vital signs: Vital Signs Temp 98.2 F 12/17/19 07:00 Pulse 92 12/17/19 09:00 Resp 18 12/17/19 08:00 BP 116/68 12/17/19 07:00 Pulse Ox 94 L 12/17/19 07:00 Intake & Output 12/16/19 12/17/19 12/17/19 18:59 06:59 18:59 Weight 79.379 kg Other: Voiding Method Toilet Toilet # Voids 1 2 # Bowel Movements 1 - Exam 59-year-old female patient, appears well nourished and normally developed. Vital signs as documented. Head exam is unremarkable. No scleral icterus or corneal arcus noted. Neck is without jugular venous distension, thyromegaly, or carotid bruits. Carotid upstrokes are brisk bilaterally. Lungs are clear to auscultation and percussion. Cardiac exam reveals the PMI to be normally sized and situated. Rhythm is regular. First and second heart sounds normal. No murmurs, rubs or gallops. Abdominal exam reveals normal bowel sounds, no masses, no organomegaly and no aortic enlargement. Extremities are nonedematous and both femoral and pedal pulses are normal.Examination of the skin revealed no evidence of significant rashes, suspicious appearing nevi or other concerning lesions.Neurologically, the patient is awake and alert and the patient does not have any focal neurological deficit. Cranial nerves are essentially intact. - Labs CBC & Chem 7: 12/17/19 06:29 12/17/19 06:29 Labs: Abnormal Lab Results - Last 24 Hours (Table) 12/16/19 12/16/19 12/16/19 Range/Units 10:30 16:35 20:24 WBC (3.8-10.6) k/uL Plt Count (150-450) k/uL Neutrophils # (1.3-7.7) k/uL Lymphocytes # (1.0-4.8) k/uL D-Dimer 0.92 H (<0.60) mg/L FEU BUN/Creatinine Ratio (12.00-20.00) Ratio Glucose (70-110) mg/dL POC Glucose (mg/dL) 147 H 168 H (75-99) mg/dL 12/17/19 12/17/19 12/17/19 Range/Units 06:29 06:29 07:23 WBC 13.1 H (3.8-10.6) k/uL Plt Count 463 H (150-450) k/uL Neutrophils # 12.0 H (1.3-7.7) k/uL Lymphocytes # 0.9 L (1.0-4.8) k/uL D-Dimer (<0.60) mg/L FEU BUN/Creatinine Ratio 27.50 H (12.00-20.00) Ratio Glucose 189 H (70-110) mg/dL POC Glucose (mg/dL) 164 H (75-99) mg/dL Assessment and Plan Assessment: 1 shortness of breath likely on the basis of COPD exacerbation. The patient had a low-grade fever of 100.6, currently afebrile CT angiographic shows no evidence of any pneumonia. This EKG exam shows no evidence of any pulmonary embolism. 2 COPD mild with a baseline FEV1 of 90% predicted 3 remote history of small cell lung cancer post-chemo radiation therapy and the patient is currently in remission 4 coronary artery disease with previous coronary stenting 5 recent rotator cuff shoulder surgery on the right 6 hypertension 7 hyperlipidemia 8 osteoarthritis 9 mild leukocytosis with a white cell count of 15 10 transaminitis with some mild elevation of alkaline phosphatase, AST and ALT. Ultrasound of the gallbladder revealed uncomplicated cholelithiasis. 11 Influenza screen was negative. Plan The patient was seen and evaluated by Dr. Taylor Currently stable from the pulmonary standpoint CoVID 19 screen pending Outpatient workup regarding cholelithiasis Follow-up in our office in 1-2 weeks post discharge I, the cosigning physician, performed a history & physical examination of the patient. Lungs sounds are clear, diminished. Maintaining good O2 saturations in the 90s on room air. I discussed the assessment and plan of care with my nurse practitioner, Hailey Washington. I attest to the above note as dictated by her.
[2019-12-17] MEDS: BENZOCAINE/MENTHOL LOZENG 1 EACH LOZENGE MUCOUS MEM PRN ×2 (11:52→22:15)
[2019-12-17] MEDS: ACETAMINOPHEN TAB 325 MG TAB PO PRN ×2 (11:53→22:24)
--- NOTE | 2019-12-17 13:13 | P.PN ---
Subjective This is a pleasant 59 years old female with past medical history of coronary artery disease, COPD, GERD, hyperlipidemia, osteoarthritis, fibromyalgia, she was previously diagnosed with lung cancer 6 years ago, status post chemo radiotherapy currently she is in remission as per documentation. Presents because of acute dyspnea associated with cough and no significant chest pain. Also patient has fever on presentation. And on auscultation patient has a started wheezing suspicious for acute COPD exacerbation. She is slightly tachycardic at 110, she is saturating 90s on room air. Blood pressure is low normal 94/57 She has leukocytosis of 15.8 K. D-dimer is elevated 0.92, sodium 133, rest of BMP were unremarkable. liver enzymes are slightly elevated AST/ALT. Inflow was has not detected. Chest x-ray showed no evidence of pneumonia. CTA of the chest: No PE 12/17/2019 Patient today was seen walking in the room comfortably, she presented quietly, she saturating 94% on room air.no more fever since admission. WBC is trending down to 13 K. sputum culture blood culture are pending Liver ultrasound showing uncomplicated cholelithiasis Covid test is pending Possible discharge in 24-48 hours Objective - Vital Signs Vital signs: Vital Signs Temp 98.2 F 12/17/19 07:00 Pulse 92 12/17/19 12:02 Resp 18 12/17/19 08:00 BP 116/68 12/17/19 07:00 Pulse Ox 94 L 12/17/19 07:00 Intake & Output 12/16/19 12/17/19 12/17/19 18:59 06:59 18:59 Weight 79.379 kg Other: Voiding Method Toilet Toilet # Voids 1 2 # Bowel Movements 1 - Exam GENERAL: The patient is alert and oriented x3, not in any acute distress. Well developed, well nourished. HEENT: Pupils are round and equally reacting to light. EOMI. No scleral icterus. No conjunctival pallor. Normocephalic, atraumatic. No pharyngeal erythema. No thyromegaly. CARDIOVASCULAR: S1 and S2 present. No murmurs, rubs, or gallops. PULMONARY: Chest is clear to auscultation,bilateral scattered wheezing -ABDOMEN: Soft, mild supraumbilical tenderness with no rebound tenderness or guarding, nondistended, normoactive bowel sounds. No palpable organomegaly. MUSCULOSKELETAL: No joint swelling or deformity. EXTREMITIES: No cyanosis, clubbing, or pedal edema. NEUROLOGICAL: Gross neurological examination did not reveal any focal deficits. SKIN: No rashes. no petechiae. - Labs CBC & Chem 7: 12/17/19 06:29 12/17/19 06:29 Labs: Abnormal Lab Results - Last 24 Hours (Table) 12/16/19 12/16/19 12/17/19 Range/Units 16:35 20:24 06:29 WBC 13.1 H (3.8-10.6) k/uL Plt Count 463 H (150-450) k/uL Neutrophils # 12.0 H (1.3-7.7) k/uL Lymphocytes # 0.9 L (1.0-4.8) k/uL BUN/Creatinine Ratio (12.00-20.00) Ratio Glucose (70-110) mg/dL POC Glucose (mg/dL) 147 H 168 H (75-99) mg/dL 12/17/19 12/17/19 12/17/19 Range/Units 06:29 07:23 11:28 WBC (3.8-10.6) k/uL Plt Count (150-450) k/uL Neutrophils # (1.3-7.7) k/uL Lymphocytes # (1.0-4.8) k/uL BUN/Creatinine Ratio 27.50 H (12.00-20.00) Ratio Glucose 189 H (70-110) mg/dL POC Glucose (mg/dL) 164 H 176 H (75-99) mg/dL Microbiology - Last 24 Hours (Table) 12/16/19 10:30 Blood Culture - Preliminary Blood No Growth after 24 hours 12/17/19 08:40 Sputum Culture - Preliminary Sputum Assessment and Plan Assessment: Acute COPD exacerbation Acute tracheobronchitis Elevated liver enzymes, rule out gallbladder disease Hyperlipidemia Osteoarthritis GERD fibromyalgia History of lung cancer 6 years ago, status post chemo radiotherapy currently she is in remission as per documentation. Plan: This is a pleasant 59 years old female who presents for COPD exacerbation and to Lg Check her bronchitis. Continue with antibiotics, steroids, bronchodilators and oxygen as needed. Start gentle hydration for low normal blood pressure. Continue with pain management with Ultram and Tylenol. Con tinue with this. Follow-up recommendation by veneer grader. Follow-up sputum culture. Rule out gallbladder disease Labs and medication were reviewed.. Continue same treatment. Continue with symptomatic treatment. Resume home medication. Monitor lytes and vitals. DVT and GI prophylaxis. Further recommendations of the clinical course of the patient DVT prophylaxis: Subcutaneous heparin GI Prophylaxis: Pepcid PT/OT: Pending Prognosis is guarded
[2019-12-17] MEDS: ASPIRIN 325 MG TAB PO SCH (14:18)
[2019-12-17] MEDS: SODIUM CHLORIDE 0.9% 1,000 ML IV SCH (14:22)
[2019-12-17 16:27] LABS: Glucose,Whole Blood 113 mg/dL (75-99)
[2019-12-17 20:41] LABS: Glucose,Whole Blood 164 mg/dL (75-99)
[2019-12-17] MEDS: EZETIMIBE 10 MG TAB PO SCH (20:58)
[2019-12-17] MEDS: CYCLOBENZAPRINE 10 MG TAB PO SCH (20:58)
[2019-12-17] MEDS: AMITRIPTYLINE HCL 25 MG TAB PO SCH (20:59)
[2019-12-17 21:56] LABS: Albumin 3.6 g/dL (3.5-5.0); Albumin/Globulin Ratio 1.2; Bilirubin,Unconjugated 0.3 mg/dL (0.0-1.1); Globulin 3.1 g/dL; Total Bilirubin 0.6 mg/dL (0.2-1.3); Total Protein 6.7 g/dL (6.3-8.2)
[2019-12-18] MEDS: traMADol 50 MG TAB PO PRN ×4 (00:01→09:41)
[2019-12-18] MEDS: SODIUM CHLORIDE 0.9% 1,000 ML IV SCH (00:21)
[2019-12-18] MEDS: methylPREDNISolone SOD SUCCI 125 MG/2 ML VIAL IV SCH (05:01)
[2019-12-18 06:44] LABS: Glucose,Whole Blood 179 mg/dL (75-99)
[2019-12-18] MEDS: DOCUSATE 100 MG CAP PO SCH (07:35)
[2019-12-18] MEDS: GABAPENTIN 300 MG CAP PO SCH (07:35)
[2019-12-18] MEDS: ASPIRIN 325 MG TAB PO SCH (07:36)
[2019-12-18 07:37] VITALS: BP 119/70; RESP 20; TEMP 98.4
[2019-12-18] MEDS: INSULIN ASPART (NovoLOG) 100 UNIT/ML VIAL SQ SCH (07:37)
[2019-12-18] MEDS: AZITHROMYCIN 500 MG TAB PO SCH (07:42)
[2019-12-18] MEDS: IPRATROPIUM-ALBUTEROL 3 ML NEB INHALATION SCH (07:48)
[2019-12-18] MEDS: BUDESONIDE 0.25 MG/2 ML NEBU INHALATION SCH (07:48)
[2019-12-18 07:53] VITALS: PULSE 100
--- NOTE | 2019-12-18 08:54 | P.DS ---
Providers Date of admission: 12/16/19 11:34 Attending physician: Colby Mojica MD Consults: 12/16/19 12:01 Consult Physician Routine Consulting Provider: Shawn Taylor Consult Reason/Comments: copd exacerbation/rule out co-vid Do you want consulting provider notified?: Yes Primary care physician: Sandrita Raphael Hospital Course: Diagnoses: Acute COPD exacerbation. Improved and cleared by pulmonary for discharge Acute tracheobronchitis. Improved Mild biliary colic, with Elevated liver enzymes, secondary to uncomplicated cholelithiasis. Follow-up as an outpatient Hyperlipidemia Osteoarthritis GERD fibromyalgia History of lung cancer 6 years ago, status post chemo radiotherapy currently she is in remission as per documentation. Hospital course: This is a pleasant 59 years old female with past medical history of coronary artery disease, COPD, GERD, hyperlipidemia, osteoarthritis, fibromyalgia, she was previously diagnosed with lung cancer 6 years ago, status post chemo radiotherapy currently she is in remission as per documentation. Presents because of acute dyspnea associated with cough and no significant chest pain. Also patient has fever on presentation. And on auscultation patient has a started wheezing suspicious for acute COPD exacerbation. Patient has been evaluated by aemt, she was treated with Zithromax, ceftriaxone and Solu-Medrol 60 mg, and normal saline for low normal blood pressure. Patient showed interval improvement, her symptoms improved significantly and on the day of discharge she has minimal tachypnea with no chest pain or coughing. No change in urine or bowel habits. No fever no other complaints.pt was eager to be discharged early Patient had mild upper abdominal pain with mild elevated liver enzymes. Gallbladder ultrasound: Uncomplicated cholelithiasis. Patient was instructed to follow up as an outpatient with GI team and she agrees. Patient was cleared for discharge by pulmonary team, pt will be discharge on short course of augmentin. and tapered steroid and inhaler Problems and management plan were discussed with the patient and he verbalized understanding and acceptance Patient was found stable and can be discharged home however he needs follow-up as an outpatient. Patient was instructed to follow up with PCP Dr. Raphael within one week and patient agrees. Patient also was instructed to follow up with Dr. Taylor in 1-2 weeks and pipe finishing supervisor Dr. Diaz and surgeon in 1-2 weeks and she agrees to call and make her appointments Gen: patient is a AAOx3, no distress CVS: S1-S2, RRR, no murmur Lungs: B/L CTA, no wheezing Abdomen: soft, no distention, no tenderness, positive bowel sounds Extremity: no leg edema or induration Time spent more than 35 minutes Plan - Discharge Summary Discharge Rx Participant: No New Discharge Prescriptions: New Amoxic-Pot Clav 875-125Mg [Augmentin 875-125] 1 tab PO Q12HR 5 Days #10 tab predniSONE 10 mg PO DIRECTED #18 tab Continue Omeprazole 40 mg PO HS estradioL [Estrace] 1 mg PO DAILY Gabapentin 600 mg PO TID Cyclobenzaprine [Flexeril] 10 mg PO HS Amitriptyline HCl [Elavil] 75 mg PO HS Nitroglycerin Sl Tabs [Nitrostat] 0.4 mg SUBLINGUAL Q5M PRN #25 tab PRN Reason: Chest Pain Budesonide [Pulmicort] 0.25 mg INHALATION RT-BID Ezetimibe [Zetia] 10 mg PO HS traMADol HCL [Ultram] 50 mg PO Q3H PRN PRN Reason: Pain Turmeric Root Extract [Turmeric] 1,000 mg PO DAILY Ibuprofen [Motrin] 800 mg PO BID PRN PRN Reason: Pain Aspirin 325 mg PO ONCE PRN PRN Reason: Fever And/ Or Pain Ipratropium-Albuterol Nebulize [Duoneb 0.5 mg-3 mg/3 ml Soln] 3 ml INHALATION RT-TID Acetaminophen Tab [Tylenol] 650 mg PO Q6H Albuterol Inhaler [Ventolin Hfa Inhaler] 2 puff INHALATION RT-Q6H PRN #1 inh PRN Reason: Shortness Of Breath Discharge Medication List Amitriptyline HCl [Elavil] 75 mg PO HS 03/02/15 [History] Cyclobenzaprine [Flexeril] 10 mg PO HS 03/02/15 [History] Gabapentin 600 mg PO TID 03/02/15 [History] Omeprazole 40 mg PO HS 03/02/15 [History] estradioL [Estrace] 1 mg PO DAILY 03/02/15 [History] Nitroglycerin Sl Tabs [Nitrostat] 0.4 mg SUBLINGUAL Q5M PRN #25 tab 03/04/15 [Rx] Budesonide [Pulmicort] 0.25 mg INHALATION RT-BID 01/01/16 [History] Ezetimibe [Zetia] 10 mg PO HS 11/14/18 [History] traMADol HCL [Ultram] 50 mg PO Q3H PRN 11/14/18 [History] Acetaminophen Tab [Tylenol] 650 mg PO Q6H 12/16/19 [History] Aspirin 325 mg PO ONCE PRN 12/16/19 [History] Ibuprofen [Motrin] 800 mg PO BID PRN 12/16/19 [History] Ipratropium-Albuterol Nebulize [Duoneb 0.5 mg-3 mg/3 ml Soln] 3 ml INHALATION RT-TID 12/16/19 [History] Turmeric Root Extract [Turmeric] 1,000 mg PO DAILY 12/16/19 [History] Albuterol Inhaler [Ventolin Hfa Inhaler] 2 puff INHALATION RT-Q6H PRN #1 inh 12/18/19 [Rx] Amoxic-Pot Clav 875-125Mg [Augmentin 875-125] 1 tab PO Q12HR 5 Days #10 tab 12/18/19 [Rx] predniSONE 10 mg PO DIRECTED #18 tab 12/18/19 [Rx] Follow up Appointment(s)/Referral(s): Santy Ayoub MD [Medical Doctor] - 2 Weeks Savannah Diaz MD [STAFF PHYSICIAN] - 1 Week (for uncomplicated cholelithiasis, and elevated liver enzymes) Sandrita Raphael MD [Primary Care Provider] - 1-2 days Shawn Taylor MD [STAFF PHYSICIAN] - 10 Days (Cargo Service Supervisor) Activity/Diet/Wound Care/Special Instructions: heart healthy diet activity is limited till you see your doctor Discharge Disposition: HOME SELF-CARE
[2019-12-18 10:37] LABS: ALT 74 U/L (8-44); AST 46 U/L (13-35); Albumin/Globulin Ratio 1.56 (1.60-3.17); Alkaline Phosphatase 210 U/L (41-126); Bilirubin, Conjugated <0.20 mg/dL (0.20-0.40); Globulin 2.5 g/dL (1.6-3.3); Total Bilirubin 0.2 mg/dL (0.2-1.2); Total Protein 6.4 g/dL (6.2-8.2)
--- NOTE | 2019-12-20 03:05 | CDI ---
Documentation Clarification Form Date: 12/20/2019 From: Chris Wilcox Phone: If you have a question about this query, please contact Janneth Bee, Counter Checker at [phone] between 8am and 5pm. Admit Date: 12/16/2019 Discharge Date: 12/18/2019 Patient Name: Demi Daniels Visit Number: [id number] ATTENTION: The Clinical Documentation Specialists (CDI) and [facility] Coding Staff appreciate your assistance in clarifying documentation. Please respond to the clarification below the line at the bottom and electronically sign. The CDI & [facility] Coding staff will review the response and follow-up if needed. Please note: Queries are made part of the Legal Health Record. If you have any questions, please contact the author of this message via ITS. Dear Colby Foley MD., The patient presented with the COPD exacerbation and sepsis per ED. History/Risk Factors: COPD, GERD, Hyperlipidemia, CAD WBC : 15.8 Lactic acid : 1.5 Vitals signs on admission:Temperature 100.6 F H Pulse Rate 122 H 112 H Respiratory 18 18 Rate Blood Pressure 115/66 O2 Sat by Pulse 95 Oximetry Patient does meet sepsis criteria diagnosed at 11:30 AM.Blood culture and lactic acid ordered.IV antibiotics will be ordered. Per ED documentated COPD exacerbation and sepsis. Per DS stated "Acute COPD exacerbation.Improved and cleared by pulmonary for discharge Acute tracheobronchitis.Improved". In your professional opinion, please clarify if these findings signify one of the following conditions, Condition Sepsis ruled out SIRS, without underlying infectious process Sepsis Severe Sepsis Septic Shock Other, please specify Unable to determine Sepsis MTDD
== END 2019-12-18 09:45 | disposition home or self-care (01) | DRG 872 ==
LOC: EC 09:27 → 4SSUR 11:34
PROVIDERS: ADMIT Internal Medicine; ATTEND Internal Medicine
DX: A41.9 Sepsis, unspecified organism (principal); J44.1 Chronic obstructive pulmonary disease with (acute) exacerbation; J44.0 Chronic obstructive pulmonary disease with (acute) lower respiratory infection; J20.9 Acute bronchitis, unspecified; K80.50 Calculus of bile duct without cholangitis or cholecystitis without obstruction; E78.5 Hyperlipidemia, unspecified; I25.10 Atherosclerotic heart disease of native coronary artery without angina pectoris; K21.9 Gastro-esophageal reflux disease without esophagitis; I10 Essential (primary) hypertension; Z96.651 Presence of right artificial knee joint; K80.20 Calculus of gallbladder without cholecystitis without obstruction; M19.90 Unspecified osteoarthritis, unspecified site; Z20.828 Contact with and (suspected) exposure to other viral communicable diseases; M79.7 Fibromyalgia; Z79.82 Long term (current) use of aspirin; Z79.890 Hormone replacement therapy; Z79.899 Other long term (current) drug therapy; Z90.710 Acquired absence of both cervix and uterus; Z92.21 Personal history of antineoplastic chemotherapy; Z95.5 Presence of coronary angioplasty implant and graft; Z88.5 Allergy status to narcotic agent; Z98.890 Other specified postprocedural states; Z98.891 History of uterine scar from previous surgery; Z85.118 Personal history of other malignant neoplasm of bronchus and lung
CPT/HCPCS: 36415; 71046; 71275; 76705; 80048; 80053; 80076; 83605; 83880; 85025; 85379; 85610; 85730; 87040; 87070; 87205; 87502; 93005; 94640; 94760; 96374; 99291

== ENCOUNTER → 2020-04-11 | Outpatient (CLI) | payer MEDICARE ==
[2020-04-11 14:41] VITALS: BP 106/73; PULSE 99; RESP 16; TEMP 92.2
--- NOTE | 2020-04-11 14:52 | P.GSHP ---
History of Present Illness H&P Date: 04/11/20 Chief Complaint: right breast nodule Demi is a 60 year old white female seen in consultation for DR. Raphael regarding a nodule in the right breast. She had a bilateral mammogram approximately 3 weeks ago after which an ultrasound of the right breast was recommended. The ultrasound of the right breast revealed a 0.7 x 0.5 cm lesion at the 2 o'clock position very close to the skin for which a biopsy was recommended. This was a routine mammogram. She had not had one for 5 years. The patient states that she is able to feel pain in her breast at that site with pressure. She does not feel any discrete nodule. She does not feel any lumps or nodules any place else in her breasts. She has no nipple discharge or skin changes. She has undergone an open biopsy of the right breast approximately 30 years ago which was benign. She does have scar tissue at that site. She has had needle aspiration of the right breast in the past as well which have been benign. Patient had small cell lung cancer 2012. She has been in remission for 8 years. She was treated with chemo and radiation. She had 10 treatments of brain radiation for Prophylaxis. She follows intermittently with Dr. Campa, Dr. Zepeda. Caffiene: 3 cups/day nicotine: none, stopped 8 years ago, used to smoke 1 PPD/for about 40 years since [place]-bromine: daily Family History: patient: small cell cancer of the lung maternal aunt: multiple myloma Hormonal History: menarche: 11 , breast fed: no, age at first : 25 menopause: total hysterectomy at 45 BCP: 6 months Surgical history: Total abdominal hysterectomy emergency laporatomy/ bleeding after D&C spinal fusion total knee replacement right shoulder tear gallbladder times 3 three Cardiac stints Medical History: Arthritis Degenerative disc disease Myocardial infarction in the past Fibromyalgia Bilateral carpal tunnel COPD Coronary artery disease Social History: smoke: stopped 8 years ago alcohol: none drugs: none - Constitutional Constitutional: Denies chills, Denies fever - EENT Eyes: denies blurred vision, denies pain Ears: right: decreased hearing, deny: tinnitus Ears, nose, mouth and throat: Denies headache, Denies sore throat - Breasts Breasts: bilateral: as per HPI - Cardiovascular Comment: [place] - Respiratory Comment: small cell cancer in remission - Gastrointestinal Gastrointestinal: Denies abdominal pain, Denies diarrhea, Denies nausea, Denies vomiting - Genitourinary (Female) Genitourinary: Denies dysuria, Denies hematuria - Menstruation Menstruation: Reports post hysterectomy - Musculoskeletal Musculoskeletal: Reports as per HPI - Integumentary Integumentary: Denies pruritus, Denies rash - Neurological Neurological: Reports as per HPI, Reports numbness, Reports weakness - Psychiatric Psychiatric: Denies anxiety, Denies depression - Endocrine Endocrine: Denies fatigue, Denies weight change - Hematologic/Lymphatic Comment: none - Allergic/Immunologic Allergic/Immunologic: Reports as per HPI 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 and the patient was treated with combined chemoradiation therapy approximately 6 years ago and she's been in remission, COPD moderate FEV1 of 90% of predicted, acid reflux, degenerative arthritis, coronary artery disease, hyperlipidemia History of Any Multi-Drug Resistant Organisms: None Reported Past Surgical History: Back Surgery, Section, Heart Catheterization With Stent, Hysterectomy Additional Past Surgical History / Comment(s): RIGHT KNEE replace , LUNG BIOPSY, rt shoulder, abd lap Past Anesthesia/Blood Transfusion Reactions: Motion Sickness, Postoperative Nausea & Vomiting (PONV) Date of Last Stent Placement:: 2016 Past Psychological History: No Psychological Hx Reported Smoking Status: Never smoker Past Alcohol Use History: None Reported Past Drug Use History: None Reported - Past Family History Mother Family Medical History: No Reported History Medications and Allergies Home Medications Medication Instructions Recorded Confirmed Type Amitriptyline HCl [Elavil] 75 mg PO HS 03/02/15 12/16/19 History Cyclobenzaprine [Flexeril] 10 mg PO HS 03/02/15 12/16/19 History Gabapentin 600 mg PO TID 03/02/15 12/16/19 History Omeprazole 40 mg PO HS 03/02/15 12/16/19 History estradioL [Estrace] 1 mg PO DAILY 03/02/15 12/16/19 History Nitroglycerin Sl Tabs [Nitrostat] 0.4 mg SUBLINGUAL Q5M PRN #25 tab 03/04/15 12/16/19 Rx Budesonide [Pulmicort] 0.25 mg INHALATION RT-BID 01/01/16 12/16/19 History Ezetimibe [Zetia] 10 mg PO HS 11/14/18 12/16/19 History traMADol HCL [Ultram] 50 mg PO Q3H PRN 11/14/18 12/16/19 History Acetaminophen Tab [Tylenol] 650 mg PO Q6H 12/16/19 12/16/19 History Aspirin 325 mg PO ONCE PRN 12/16/19 12/16/19 History Ibuprofen [Motrin] 800 mg PO BID PRN 12/16/19 12/16/19 History Ipratropium-Albuterol Nebulize 3 ml INHALATION RT-TID 12/16/19 12/16/19 History [Duoneb 0.5 mg-3 mg/3 ml Soln] Turmeric Root Extract [Turmeric] 1,000 mg PO DAILY 12/16/19 12/16/19 History Albuterol Inhaler [Ventolin Hfa 2 puff INHALATION RT-Q6H PRN #1 inh 12/18/19 Rx Inhaler] Amoxic-Pot Clav 875-125Mg 1 tab PO Q12HR 5 Days #10 tab 12/18/19 Rx [Augmentin 875-125] predniSONE 10 mg PO DIRECTED #18 tab 12/18/19 Rx Allergies Allergy/AdvReac Type Severity Reaction Status Date / Time codeine Allergy Rash/Hives, Verified 12/16/19 12:25 VOMITING hydromorphone HCl Allergy Anaphylaxis Verified 12/16/19 12:25 [From Dilaudid] Surgical - Exam BMI 30.8 - General moderate distress - Eyes normal ocular movement - ENT normal pinna, normal nares - Neck no masses, trachea midline, no lymphadectomy - Respiratory normal expansion, normal respiratory effort, clear to auscultation - Cardiovascular Rhythm: regular Heart Sounds: normal: S1, S2 - Abdomen Abdomen: soft, bowel sounds - Integumentary normal turgor - Musculoskeletal normal gait, normal posture - Psychiatric oriented to time, oriented to person, oriented to place, speech is normal, memory intact breast exam: BRA: 38C inspection: Right breast larger than left breast, bilateral grade 3 ptosis Palpation: Right breast: Multiple positional exam fibrocystic changes, no dominant masses or nodules of concern, At the 2 to 3 o'clock position near the periareolar region there is a small subcutaneous fullness which may be what is seen on the ultrasound Right axilla: No adenopathy of concern Left breast: Multiple positional exam no dominant masses or nodules of concern Left axilla: No adenopathy of concern Results Mammogram and ultrasound reports reviewed Assessment and Plan Assessment: Impression: Arthritis Degenerative disc disease Myocardial infarction in the past Fibromyalgia Bilateral carpal tunnel COPD Coronary artery disease Fibrocystic changes bilateral breast Radiographic abnormality right breast Probable small area of nodularity which may correspond to ultrasound change right breast which appears to be in the subcutaneous tissue rather than the breast tissue Plan: 1. I would like to see the actual radiographs and the patient and her family are going to get these to provide for us 2. If this is in the subcutaneous area was considered to be suspicious the most likely excision in the operating room would be recommended if this is in the breast tissue then ultrasound-guided core biopsy would be recommended CC: Dr. Raphael Addendum: The radiograph was reviewed with Dr. Bethea from radiology. Appears the lesion is in the breast tissue. We're therefore recommending ultrasound- guided core biopsy. She is recommended to stop her ibuprofen for week before. Risks and benefits of the procedure including but not limited to bleeding, infection, reaction to anesthetic are discussed. Patient and her understand and wish to proceed. encounter 45 minutes, time spent in review of medical records, physical exam, and counselling
== END | disposition home or self-care (01) ==
LOC: WWCWWP 13:51
PROVIDERS: ATTEND Surgery
DX: Z53.9 Procedure and treatment not carried out, unspecified reason (principal)

== ENCOUNTER → 2020-04-24 | Day surgery (SDC) | payer MEDICARE ==
[2020-04-24 07:21] VITALS: BP 100/62; PULSE 108; RESP 16; TEMP 98.8
--- NOTE | 2020-04-24 08:43 | USB ---
US discontinued breast bx RT HISTORY: Abnormal ultrasound from an outside institution Ultrasound of the right 2:00 position was performed prior to scheduled biopsy. At the 2:00 position t here is a simple cluster of cysts. In addition the patient took her aspirin dose this morning. It is decided that biopsy be deferred given the simple cyst appearance. This was discussed with the patient . Six-month follow-up ultrasound is advised. IMPRESSION: Probably benign BI-RADS 3 Recommendation: 6 month follow-up ultrasound of the right breast
== END ==
LOC: RADUSWWP 06:54
PROVIDERS: ATTEND Surgery
DX: R92.8 Other abnormal and inconclusive findings on diagnostic imaging of breast (principal); Z88.5 Allergy status to narcotic agent

== ENCOUNTER → 2020-10-21 | Outpatient (CLI) | payer MEDICARE ==
--- NOTE | 2020-10-22 11:13 | USB ---
Reason for exam: follow-up at short interval from prior study. History: Patient has history of other cancer at age 52. US discontinued breast bx RT of the right breast, April 24, 2020. Physical Findings: Nurse Summary: all soft, nodular, movable (nurse ts). US Breast Limited RT Right limited breast ultrasound including focal area of concern, retroareolar and axilla demonstrates scattered duct ectasia. The 2 o'clock cyst cluster has resolved. Patient's annual exam can be performed in diagnostic clinic. Scanned 12-3 o'clock. These results were verbally communicated with the patient and result sheet given to the patient on 10/21/20. ASSESSMENT: Probably benign, BI-RAD 3 RECOMMENDATION: Follow-up diagnostic mammogram of both breasts in 6 months. Back on schedule for March 2021.
== END | disposition home or self-care (01) ==
LOC: RADUSWWP 13:50
PROVIDERS: ATTEND Surgery
DX: R92.8 Other abnormal and inconclusive findings on diagnostic imaging of breast (principal); N64.4 Mastodynia

== ENCOUNTER → 2021-03-27 | Outpatient (CLI) | payer MEDICARE ==
--- NOTE | 2021-03-27 12:46 | XR ---
EXAMINATION TYPE: XR chest 2V DATE OF EXAM: 03/27/2021 COMPARISON: 12/16/2019 INDICATION: Short of breath, lung cancer TECHNIQUE: Frontal and lateral views of the chest are obtained. FINDINGS: The heart size is normal. The pulmonary vasculature is normal. There is increased lung markings at the right suprahilar region and right medial upper lobe present p reviously. Some elevation of the right diaphragm remains present. Right hilar appearance is stable.. IMPRESSION: 1. Stable appearance of right lung findings. 2. An acute pulmonary process not radiographically apparent.
== END | disposition home or self-care (01) ==
LOC: RADXRYALE 11:38
PROVIDERS: ATTEND Internal Medicine
DX: C34.90 Malignant neoplasm of unspecified part of unspecified bronchus or lung (principal)
CPT/HCPCS: 71046

== ENCOUNTER → 2021-05-26 | Outpatient (CLI) | payer MEDICARE ==
--- NOTE | 2021-05-26 19:23 | CT ---
EXAMINATION TYPE: CT chest w con DATE OF EXAM: 05/26/2021 COMPARISON: CT dated 12/16/2019 HISTORY: Hemoptysis. Hx small cell lung ca CT DLP: 392.40 mGycm Automated exposure control for dose reduction was used. TECHNIQUE: CT scan of the chest is performed with IV Contrast, patient injected with 100 mL of Isovue 300 FINDINGS: LUNGS: Thick fibrotic changes, loss of volume and bronchiectasis are seen at the medial aspect of the right lung likely related to chronic postradiation changes. Underlying infiltrating lung lesion at t hat location can't be excluded by this CT scan. Subtle groundglass opacities are seen in the right lo wer lobe with bilateral peripheral pulmonary reticulations, nonspecific. Degenerative changes are als o seen in the right lung apex anteriorly. Grossly unremarkable remainder of the lungs. No sizable ple ural effusion. Patent trachea and main bronchi. MEDIASTINUM: Cardiomediastinal shift to the right side. No gross cardiomegaly. Arterial and coronary atherosclerotic calcifications. No pericardial effusion. No pathologically enlarged lymph nodes in th e chest. OTHER: Nondisplaced fracture of the posterior aspect of the right sixth rib. Osteopenia. No aggressi ve bone lesion otherwise. Bilateral chronic rib fractures. Previous cholecystectomy. 3 mm nonobstruct ing calculus seen at the midpole of the right kidney. 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 Underlying infiltrating lung lesion or infection cannot be excluded. No suspicious lymphadenopat hy in the chest. Other incidental findings as described above.
== END | disposition home or self-care (01) ==
LOC: RADCTMAIN 14:53
PROVIDERS: ATTEND Internal Medicine
DX: R04.2 Hemoptysis (principal); Z85.118 Personal history of other malignant neoplasm of bronchus and lung
CPT/HCPCS: 71260; Q9967

== ENCOUNTER → 2022-01-26 | Outpatient (CLI) | payer MEDICARE ==
--- NOTE | 2022-01-26 10:47 | XR ---
EXAMINATION TYPE: XR lumbosacral spine min 4V DATE OF EXAM: 01/26/2022 CLINICAL HISTORY: pain COMPARISON: 12/12/2014 TECHNIQUE: Frontal, lateral, and oblique images of the lumbar spine are obtained. FINDINGS: There are 5 lumbar type vertebral bodies identified. The lumbar spine shows satisfactory alignment without evidence of acute fracture or dislocation. Postoperative changes of lumbar laminect naeem and fusion at L4-5. Pedicular screws are in place. Vacuum disc changes at L5-S1 with ventral and dorsal spondylosis. Postoperative alignment is within normal limits. The overlying soft tissue appear s unremarkable. IMPRESSION: No acute fracture or dislocation is seen in the lumbar spine.ICD 10 NO FRACTURE, INITIAL EVALUATION
== END | disposition home or self-care (01) ==
LOC: RADXRYALE 10:30
PROVIDERS: ATTEND Internal Medicine
DX: M54.31 Sciatica, right side (principal)
CPT/HCPCS: 72110

== ENCOUNTER → 2022-04-02 | Outpatient (CLI) | payer MEDICARE ==
[2022-04-02 16:57] LABS: INR 1.7 (<1.2); Partial Thromboplastin Time 27.1 sec (22.0-30.0); Prothrombin Time 16.8 sec (9.0-12.0)
[2022-04-02 22:51] LABS: HCT 41.9 % (37.2-46.3); HGB 13.5 g/dL (12.0-15.0); MCH 30.8 pg (27.0-32.0); MCHC 32.2 g/dL (32.0-37.0); MCV 95.4 fL (80.0-97.0); Mean Platelet Volume 9.2 fL (9.5-12.2); NRBC Per 100 WBC 0 /100 WBCS (0.0-0.0); Platelet Count 307 X 10*3/uL (140-440); RBC 4.39 X 10*6/uL (4.10-5.20); RDW 13.9 % (11.5-14.5); WBC 7.77 X 10*3/uL (4.50-10.00)
[2022-04-02 23:14] LABS: Appearance,Urine Clear (Clear); Bilirubin,Urine Negative (Negative); Blood,Urine Negative (Negative); Color,Urine Yellow (Yellow); Ketones,Urine Negative (Negative); Nitrite,Urine Negative (Negative); PH, Urine 5.5 (5.0-8.0); Specific Gravity,Urine 1.031 (1.001-1.030)
[2022-04-02 23:34] LABS: Albumin 3.9 g/dL (3.8-4.9); Albumin/Globulin Ratio 1.55 (1.60-3.17); Anion Gap 13.4 mmol/L (10.00-18.00); BUN/Creat Ratio 22.37 Ratio (12.00-20.00); Blood Urea Nitrogen 22.1 mg/dL (9.0-27.0); Calcium 8.9 mg/dL (8.7-10.3); Carbon Dioxide 21.3 mmol/L (20.0-27.5); Globulin 2.5 g/dL (1.6-3.3); Non-African American GFR(CKD) 61.2 (60.0-200.0); Potassium 4.8 mmol/L (3.5-5.5); Total Bilirubin 0.3 mg/dL (0.30-1.20); Total Protein 6.4 g/dL (6.2-8.2)
== END | disposition home or self-care (01) ==
LOC: LABPAT 15:17
PROVIDERS: ATTEND Orthopaedic Surgery
DX: Z01.812 Encounter for preprocedural laboratory examination (principal); M17.12 Unilateral primary osteoarthritis, left knee
CPT/HCPCS: 80053; 81003; 85027; 85610; 85730; 87070

== ENCOUNTER → 2022-07-07 | Outpatient (CLI) | payer MEDICARE ==
--- NOTE | 2022-07-08 20:51 | MM ---
Reason for Exam: Screening (asymptomatic). Last mammogram was performed 1 year(s) and 1 month(s) ago. Patient History: Menarche at age 11. First Full-Term at age 25. Left ovary removed at age 45. Right ovary removed at age 45. Hysterectomy at age 45. Postmenopausal. Other cancer, age 52. Currently using Estrogen, beginning at age 45 for 16 years. Patient used Hormonal Contraceptives for 1 year. 04/24/2020, US discontinued breast bx RT on the right side. Maternal aunt had breast cancer. Risk Values: Evelyn 5 year model risk: 1.9%. NCI Lifetime model risk: 8.4%. Prior Study Comparison: 10/21/2020 Right Diagnostic Ultrasound, [facility]. 06/12/2021 Bilateral Diagnostic Mammogram, [facility]. Tissue Density: The breast tissue is heterogeneously dense. This may lower the sensitivity of mammography. Findings: Analyzed By CAD. Chronic nodularity on both sides. There is no suspicious group of microcalcifications or new suspicious mass in either breast. Overall Assessment: Benign, BI-RAD 2 Management: Screening Mammogram of both breasts in 1 year. . Patient should continue monthly self-breast exams. A clinical breast exam by your physician is recommended on an annual basis. This exam should not preclude additional follow-up of suspicious palpable abnormalities. Note on Evelyn scores and lifetime risk: 1. A Evelyn score greater than 3% is considered moderate risk. If this is the case, consider specialist referral to assess eligibility for a risk reducing agent. 2. If overall lifetime risk for the development of breast cancer is 20% or higher, the patient may qualify for future screening with alternating mammogram and breast MRI. Electronically signed and approved by: Adria Benitez M.D. Radiologist
== END | disposition home or self-care (01) ==
LOC: RADMAMWWP 13:14
PROVIDERS: ATTEND Internal Medicine
DX: Z12.31 Encounter for screening mammogram for malignant neoplasm of breast (principal); Z78.0 Asymptomatic menopausal state; Z80.3 Family history of malignant neoplasm of breast
CPT/HCPCS: 77063; 77067

== ENCOUNTER → 2022-10-12 | Outpatient (CLI) | payer MEDICARE ==
--- NOTE | 2022-10-12 22:28 | CT ---
EXAMINATION TYPE: CT chest w con DATE OF EXAM: 10/12/2022 COMPARISON: 05/26/2021 HISTORY: Lung cancer. CT DLP: 421.9 mGycm, Automated exposure control for dose reduction was used. CONTRAST: Performed injected with 100ml mL of Isovue 300. TECHNIQUE: Axial images were obtained at 5 mm thick sections. Reconstructed images are reviewed on [employer] computer in the coronal plane. FINDINGS: Portion of the thyroid visualized is normal. There is a consolidation at the medial right apex. Air bronchograms appear to be present. Finding ko ears slightly smaller in comparison. No enlarged mediastinal or hilar adenopathy is evident. The ascending aorta diameter at the level o f the main pulmonary artery is 3.6 cm. The main pulmonary artery diameter at the bifurcation is 2.[address] sections are obtained through the upper abdomen. Abdomen is essentially unremarkable. IMPRESSIONS: 1. Essentially stable appearing medial right apical thickening, unchanged from comparison
== END | disposition home or self-care (01) ==
LOC: RADCTMAIN 12:11
PROVIDERS: ATTEND Internal Medicine Critical Care Medicine
DX: C34.91 Malignant neoplasm of unspecified part of right bronchus or lung (principal)
CPT/HCPCS: 71260; Q9967

== ENCOUNTER → 2023-03-15 | Outpatient (CLI) | payer MEDICARE ==
--- NOTE | 2023-03-16 12:57 | XR ---
EXAMINATION TYPE: XR ribs bilat w pa chest xray DATE OF EXAM: 03/15/2023 COMPARISON: 03/27/2021 HISTORY: Pleurodynia TECHNIQUE: 2 view bilateral ribs supplemented with chest FINDINGS: Note is made of tenting of the right diaphragm. Some right basilar atelectasis is likely pr esent. No pneumothorax is evident. No displaced rib fractures are identified. IMPRESSION: 1. No acute rib fractures evident. 2. Atelectasis at the right diaphragm
== END | disposition home or self-care (01) ==
LOC: RADXRYALE 13:03
PROVIDERS: ATTEND Internal Medicine
DX: J98.11 Atelectasis (principal); R07.81 Pleurodynia
CPT/HCPCS: 71111

== ENCOUNTER 2024-01-06 11:08 | Emergency (ER) | payer MEDICARE ==
[2024-01-06 11:14] VITALS: RESP 18; TEMP 98
--- NOTE | 2024-01-06 11:33 | ED ---
GI Bleed HPI - General Chief complaint: GI Bleed Stated complaint: blood in stool Time Seen by Provider: 01/06/24 11:23 Source: patient, RN notes reviewed Mode of arrival: wheelchair Limitations: no limitations - History of Present Illness Initial comments: This is a 63-year-old female who presents to the emergency department for abdominal pain and rectal bleeding. States that for most of the day yesterday she was having frequent bouts of diarrhea. Around 11 PM yesterday she then began to develop abdominal pain and cramping. Pain is worse in the lower abdomen. She then developed rectal bleeding. States that this was bright red blood and she has been having episodes of bleeding almost every hour. There is not stool mixed in with this, states that it is only blood. Not taking any blood thinners. Denies any history of rectal bleeding. She had a colonoscopy about a year ago and was told that it was normal. Denies a history of diverticulosis. Denies any associated fevers, chills, nausea, or vomiting. - Related Data Home Medications Medication Instructions Recorded Confirmed Amitriptyline HCl [Elavil] 75 mg PO HS 03/02/15 04/20/22 Cyclobenzaprine [Flexeril] 10 mg PO HS 03/02/15 04/20/22 Gabapentin 600 mg PO TID 03/02/15 04/20/22 Omeprazole 40 mg PO HS 03/02/15 04/20/22 estradioL [Estrace] 1 mg PO HS 03/02/15 04/20/22 traMADol HCL [Ultram] 50 mg PO Q6H PRN 11/14/18 04/20/22 Aspirin 325 mg PO DAILY 12/16/19 04/20/22 Ibuprofen [Motrin] 800 mg PO BID PRN 12/16/19 04/20/22 Ipratropium-Albuterol Nebulize 3 ml INHALATION RT-TID 12/16/19 04/20/22 [Duoneb 0.5 mg-3 mg/3 ml Soln] Turmeric Root Extract [Turmeric] 1,000 mg PO BID 12/16/19 04/20/22 Budesonide/Formoterol Fumarate 2 puff INHALATION BID 04/15/20 04/20/22 [Symbicort 160-4.5 Mcg Inhaler] Atorvastatin [Lipitor] 40 mg PO HS 04/16/22 04/20/22 Lidocaine 5% Patch [Lidoderm 5% 1 patch TOPICAL DAILY PRN 04/16/22 04/20/22 Patch] Previous Rx's Medication Instructions Recorded Nitroglycerin Sl Tabs [Nitrostat] 0.4 mg SUBLINGUAL Q5M PRN #25 tab 03/04/15 Albuterol Inhaler [Ventolin Hfa 2 puff INHALATION RT-Q6H PRN #1 inh 12/18/19 Inhaler] Aspirin 325 mg PO BID #60 tab 04/20/22 Ibuprofen 800 mg PO Q8H PRN #90 tab 04/20/22 Sennosides [Senokot] 2 tab PO DAILY PRN #60 tablet 04/20/22 traMADol HCl [Ultram] 1 - 2 tab PO Q6H PRN #32 tab 04/20/22 Allergies Allergy/AdvReac Type Severity Reaction Status Date / Time codeine Allergy Rash/Hives, Verified 01/06/24 11:09 VOMITING hydromorphone HCl Allergy Anaphylaxis Verified 01/06/24 11:09 [From Dilaudid] Review of Systems ROS Statement: Those systems with pertinent positive or pertinent negative responses have been documented in the HPI. ROS Other: All systems not noted in ROS Statement are negative. Past Medical History Past Medical History: Coronary Artery Disease (CAD), Cancer, COPD, Fibromyalgia, GERD/Reflux, Hyperlipidemia, Osteoarthritis (OA) Additional Past Medical History / Comment(s): Fibromyalgia, lung cancer in small cell lung cancer and the patient was treated with combined chemoradiation therapy approximately 6 years ago and she's been in remission, COPD moderate FEV1 of 90% of predicted, acid reflux, degenerative arthritis, coronary artery disease, hyperlipidemia History of Any Multi-Drug Resistant Organisms: None Reported Past Surgical History: Back Surgery, Breast Surgery, Section, Cholecystectomy, Heart Catheterization With Stent, Hysterectomy, Orthopedic Surgery Additional Past Surgical History / Comment(s): RIGHT KNEE replacement, LUNG BIOPSY, rt shoulder, abd lap, benign breast bx Past Anesthesia/Blood Transfusion Reactions: Motion Sickness, Postoperative Nausea & Vomiting (PONV) Additional Past Anesthesia/Blood Transfusion Reaction / Comment(s): no hx. of blood transfusion Date of Last Stent Placement:: 2016 Past Psychological History: No Psychological Hx Reported Smoking Status: Never smoker Past Alcohol Use History: None Reported Past Drug Use History: None Reported - Past Family History Mother Family Medical History: No Reported History General Exam Limitations: no limitations General appearance: alert, in no apparent distress Head exam: Present: atraumatic, normocephalic, normal inspection Respiratory exam: Present: normal lung sounds bilaterally. Absent: respiratory distress, wheezes, rales, rhonchi, stridor Cardiovascular Exam: Present: regular rate, normal rhythm, normal heart sounds. Absent: systolic murmur, diastolic murmur, rubs, gallop, clicks GI/Abdominal exam: Present: soft, tenderness (Lower abdomen), normal bowel sounds. Absent: distended Neurological exam: Present: alert, oriented X3, CN II-XII intact Psychiatric exam: Present: normal affect, normal mood Skin exam: Present: warm, dry, intact, normal color. Absent: rash Course Vital Signs 01/06/24 01/06/24 11:10 13:59 Temperature 98 F Pulse Rate 96 87 Respiratory 18 18 Rate Blood Pressure 122/70 114/65 O2 Sat by Pulse 98 99 Oximetry Medical Decision Making - Medical Decision Making This is a 63-year-old female who presents to the emergency department for rectal bleeding. Was pt. sent in by a medical professional or institution? @ -No Did you speak to anyone other than the patient for history? @ -No Did you review nursing and triage notes? @ -Yes, and I agree, it is accurate with regards to the patient's symptoms. Were old charts reviewed? @ -No Differential Diagnosis? @ -Differential GI Bleed: Esophageal varices, aortoenteric fistula, Deidre-Gold, gastritis, peptic ulcer disease, diverticulosis, inflammatory bowel disease, hemorrhoids, fissure, colitis, malignancy, Meckel's diverticulum, this is not meant to be an all- inclusive list. EKG interpreted by me (3pts min.)? @ -EKG interpreted by me demonstrating the following: Sinus rhythm. Ventricular rate 89 bpm, DE interval 155 ms, QRS duration 93 ms, QTc 421. X-rays interpreted by me (1pt min.)? @ -Not obtained CT interpreted by me (1pt min.)? @ -CTA of the abdomen and pelvis obtained. My interpretation identifies wall thickening around the descending colon. U/S interpreted by me (1pt. min.)? @ -Not obtained What testing was considered but not performed? (CT, X-rays, U/S, labs)? Why? @ -None What meds were considered but not given? Why? @ -None Did you discuss the management of the patient with other professionals? @ -No Did you reconcile home meds? @ -No Was smoking cessation discussed for >3mins.? @ -No Was critical care preformed (if so, how long)? @ -No Were there social determinants of health that impacted care today? How? (Homelessness, low income, unemployed, alcoholism, drug addiction, transportation, low edu. Level, literacy, decrease access to med. care, [facility], rehab)? @ -No Was there de-escalation of care discussed even if they declined? (Discuss DNR or withdrawal of care, Hospice)? @ -No What co-morbidities impacted this encounter? (DM, HTN, Smoking, COPD, CAD, Cancer, CVA, Hep., AIDS, mental health diagnosis, sleep apnea, morbid obesity)? @ -CAD, GERD Was patient admitted / discharged? @ -Discharged. Lab work demonstrates a hemoglobin of 10.2. We have no recent values for comparison. Lab work otherwise relatively unremarkable. CTA of the abdomen and pelvis demonstrated long segment colitis involving the descending colon likely from infectious or inflammatory etiology. No active GI bleed was evident. Findings reviewed with the patient. I did advise admission for serial hemoglobins. However, discussed that we do not have GI available at our facility. I offered to speak with the admitting provider to see if they would be willing to keep her here given that she did not have any active bleeding. However, discussed that they may refuse, in which case she would need to be transferred to another facility. Patient advised that she has not had any bleeding while she was here and symptoms were tolerable. She requested to be discharged home and will return if anything changes/worsens. She was given strict return parameters and advised to have close follow-up with her PCP. Also advised bowel rest for the meantime. Patient discharged home in stable condition. Case discussed with ED attending Dr. Greene. Return precautions reviewed in depth, the patient is instructed to return to the emergency department with any new, worsening, or concerning symptoms. Patient verbalized understanding. Undiagnosed new problem with uncertain prognosis? @ -None Drug Therapy requiring intensive monitoring for toxicity (Heparin, Nitro, Insulin, Cardizem)? @ -None Were any procedures done? @ -None Diagnosis/symptom? @ -Colitis, rectal bleeding Acute, or Chronic, or Acute on Chronic? @ -Acute Uncomplicated (without systemic symptoms) or Complicated (systemic symptoms)? @ -Uncomplicated Side effects of treatment? @ -None Exacerbation, Progression, or Severe Exacerbation] @ -Not applicable Poses a threat to life or bodily function? @ -Unlikely - Lab Data Result diagrams: 01/06/24 11:51 01/06/24 11:51 Lab Results 01/06/24 01/06/24 01/06/24 Range/Units 11:45 11:51 11:51 WBC 10.5 (3.8-10.6) k/uL RBC 4.27 (3.80-5.40) m/uL Hgb 10.2 L (11.4-16.0) gm/dL Hct 32.3 L (34.0-46.0) % MCV 75.7 L (80.0-100.0) fL MCH 24.0 L (25.0-35.0) pg MCHC 31.7 (31.0-37.0) g/dL RDW 16.6 H (11.5-15.5) % Plt Count 427 (150-450) k/uL MPV 7.0 Neutrophils % 80 % Lymphocytes % 13 % Monocytes % 4 % Eosinophils % 1 % Basophils % 1 % Neutrophils # 8.3 H (1.3-7.7) k/uL Lymphocytes # 1.4 (1.0-4.8) k/uL Monocytes # 0.4 (0-1.0) k/uL Eosinophils # 0.1 (0-0.7) k/uL Basophils # 0.1 (0-0.2) k/uL Hypochromasia Moderate Anisocytosis Slight Microcytosis Slight PT 10.4 (10.0-12.5) sec INR 0.9 (<1.2) APTT 26.3 (22.0-30.0) sec Sodium (137-145) mmol/L Potassium (3.5-5.1) mmol/L Chloride (98-107) mmol/L Carbon Dioxide (22-30) mmol/L Anion Gap mmol/L BUN (7-17) mg/dL Creatinine (0.52-1.04) mg/dL Est GFR (CKD-EPI)AfAm (>60 ml/min/1.73 sqM) Est GFR (CKD-EPI)NonAf (>60 ml/min/1.73 sqM) Glucose (74-99) mg/dL Plasma Lactic Acid Chilo (0.7-2.0) mmol/L Calcium (8.4-10.2) mg/dL Magnesium (1.6-2.3) mg/dL Total Bilirubin (0.2-1.3) mg/dL AST (14-36) U/L ALT (4-34) U/L Alkaline Phosphatase (38-126) U/L Troponin I (0.000-0.034) ng/mL Total Protein (6.3-8.2) g/dL Albumin (3.5-5.0) g/dL Blood Type Blood Type Confirm O Positive Blood Type Recheck Bld Type Recheck Status Antibody Screen Spec Expiration Date 01/06/24 01/06/24 01/06/24 Range/Units 11:51 11:51 11:51 WBC (3.8-10.6) k/uL RBC (3.80-5.40) m/uL Hgb (11.4-16.0) gm/dL Hct (34.0-46.0) % MCV (80.0-100.0) fL MCH (25.0-35.0) pg MCHC (31.0-37.0) g/dL RDW (11.5-15.5) % Plt Count (150-450) k/uL MPV Neutrophils % % Lymphocytes % % Monocytes % % Eosinophils % % Basophils % % Neutrophils # (1.3-7.7) k/uL Lymphocytes # (1.0-4.8) k/uL Monocytes # (0-1.0) k/uL Eosinophils # (0-0.7) k/uL Basophils # (0-0.2) k/uL Hypochromasia Anisocytosis Microcytosis PT (10.0-12.5) sec INR (<1.2) APTT (22.0-30.0) sec Sodium 134 L (137-145) mmol/L Potassium 4.0 (3.5-5.1) mmol/L Chloride 109 H (98-107) mmol/L Carbon Dioxide 18 L (22-30) mmol/L Anion Gap 7 mmol/L BUN 20 H (7-17) mg/dL Creatinine 0.76 (0.52-1.04) mg/dL Est GFR (CKD-EPI)AfAm >90 (>60 ml/min/1.73 sqM) Est GFR (CKD-EPI)NonAf 84 (>60 ml/min/1.73 sqM) Glucose 129 H (74-99) mg/dL Plasma Lactic Acid Chilo 1.1 (0.7-2.0) mmol/L Calcium 8.8 (8.4-10.2) mg/dL Magnesium 1.9 (1.6-2.3) mg/dL Total Bilirubin 0.6 (0.2-1.3) mg/dL AST 21 (14-36) U/L ALT 13 (4-34) U/L Alkaline Phosphatase 116 (38-126) U/L Troponin I (0.000-0.034) ng/mL Total Protein 6.6 (6.3-8.2) g/dL Albumin 3.7 (3.5-5.0) g/dL Blood Type O Positive Blood Type Confirm Blood Type Recheck No Previous Record Bld Type Recheck Status CABO Indicated Antibody Screen NEGATIVE Spec Expiration Date 01/09/2024 - 235001/06/24 Range/Units 11:51 WBC (3.8-10.6) k/uL RBC (3.80-5.40) m/uL Hgb (11.4-16.0) gm/dL Hct (34.0-46.0) % MCV (80.0-100.0) fL MCH (25.0-35.0) pg MCHC (31.0-37.0) g/dL RDW (11.5-15.5) % Plt Count (150-450) k/uL MPV Neutrophils % % Lymphocytes % % Monocytes % % Eosinophils % % Basophils % % Neutrophils # (1.3-7.7) k/uL Lymphocytes # (1.0-4.8) k/uL Monocytes # (0-1.0) k/uL Eosinophils # (0-0.7) k/uL Basophils # (0-0.2) k/uL Hypochromasia Anisocytosis Microcytosis PT (10.0-12.5) sec INR (<1.2) APTT (22.0-30.0) sec Sodium (137-145) mmol/L Potassium (3.5-5.1) mmol/L Chloride (98-107) mmol/L Carbon Dioxide (22-30) mmol/L Anion Gap mmol/L BUN (7-17) mg/dL Creatinine (0.52-1.04) mg/dL Est GFR (CKD-EPI)AfAm (>60 ml/min/1.73 sqM) Est GFR (CKD-EPI)NonAf (>60 ml/min/1.73 sqM) Glucose (74-99) mg/dL Plasma Lactic Acid Chilo (0.7-2.0) mmol/L Calcium (8.4-10.2) mg/dL Magnesium (1.6-2.3) mg/dL Total Bilirubin (0.2-1.3) mg/dL AST (14-36) U/L ALT (4-34) U/L Alkaline Phosphatase (38-126) U/L Troponin I <0.012 (0.000-0.034) ng/mL Total Protein (6.3-8.2) g/dL Albumin (3.5-5.0) g/dL Blood Type Blood Type Confirm Blood Type Recheck Bld Type Recheck Status Antibody Screen Spec Expiration Date - Radiology Data Radiology results: report reviewed, image reviewed Disposition Clinical Impression: Colitis, Rectal bleeding Disposition: HOME SELF-CARE Instructions (If sedation given, give patient instructions): Rectal Bleeding (ED), Colitis (ED) Additional Instructions: Return to the emergency department with any new, worsening, or concerning symptoms. Follow-up with your primary care provider in 1 to 2 days. Is patient prescribed a controlled substance at d/c from ED?: No Referrals: Sandrita Raphael MD [Primary Care Provider] - 1-2 days Time of Disposition: 13:47
[2024-01-06 12:07] LABS: Anisocytosis Slight; Basophils # (A) 0.1 k/uL (0-0.2); Basophils % (A) 1 %; Eosinophils # (A) 0.1 k/uL (0-0.7); Eosinophils % (A) 1 %; HCT 32.3 % (34.0-46.0); HGB 10.2 gm/dL (11.4-16.0); Hypochromasia Moderate; Lymphocytes # (A) 1.4 k/uL (1.0-4.8); Lymphocytes % (A) 13 %; MCHC 31.7 g/dL (31.0-37.0); MCV 75.7 fL (80.0-100.0); Microcytosis Slight; Monocytes # (A) 0.4 k/uL (0-1.0); Monocytes % (A) 4 %; Neutrophils # (A) 8.3 k/uL (1.3-7.7); Neutrophils % (A) 80 %; Platelet Count 427 k/uL (150-450); RBC 4.27 m/uL (3.80-5.40); RDW 16.6 % (11.5-15.5); WBC 10.5 k/uL (3.8-10.6)
[2024-01-06 12:23] LABS: ALT 13 U/L (4-34); AST 21 U/L (14-36); African American GFR (CKD) >90 (>60 ml/min/1.73 sqM); Albumin 3.7 g/dL (3.5-5.0); Alkaline Phosphatase 116 U/L (38-126); Anion Gap 7 mmol/L; Blood Urea Nitrogen 20 mg/dL (7-17); Calcium 8.8 mg/dL (8.4-10.2); Carbon Dioxide 18 mmol/L (22-30); Chloride 109 mmol/L (98-107); Glucose 129 mg/dL (74-99); Magnesium 1.9 mg/dL (1.6-2.3); Non-African American GFR(CKD) 84 (>60 ml/min/1.73 sqM); Sodium 134 mmol/L (137-145); Total Bilirubin 0.6 mg/dL (0.2-1.3); Total Protein 6.6 g/dL (6.3-8.2)
[2024-01-06 12:26] LABS: INR 0.9 (<1.2); Partial Thromboplastin Time 26.3 sec (22.0-30.0); Prothrombin Time 10.4 sec (10.0-12.5)
--- NOTE | 2024-01-06 13:20 | CT ---
EXAMINATION TYPE: CT angio abdomen pelvis CT DLP: 1663.9 mGycm, Automated exposure control for dose reduction was used. DATE OF EXAM: 01/06/2024 1:07 PM COMPARISON: CT chest abdomen and pelvis 07/13/2017. . CLINICAL INDICATION:Female, 63 years old with history of Abdominal pain with rectal bleeding; Abdomin al pain with rectal bleeding. Hx lung ca. TECHNIQUE: Multiple thin slice sub-millimeter images were obtained through the abdomen and pelvis bef ore and after administration of contrast. Patient was given Isovue 370, 100 cc intravenously. FINDINGS: CTA Abdomen and pelvis: The abdominal aorta does not demonstrate aneurysmal dilatation. Mild atheros clerotic plaquing is identified within the abdominal aorta. The origins of the superior mesenteric a rtery, renal arteries, inferior mesenteric artery, and celiac axis are patent. The iliac vessels are normal in morphology. Atherosclerotic plaquing with some mural thrombus formation is identified in the common iliac arteries. VISCERA: The liver, spleen, adrenal glands, kidneys, pancreas, and gallbladder are not optimally enha nced due the arterial phase utilized. LIVER: Unremarkable GALLBLADDER AND BILE DUCTS: The gallbladder is surgically absent. No biliary ductal dilatation. PANCREAS: Unremarkable. SPLEEN: Unremarkable. ADRENAL GLANDS: Unremarkable. KIDNEYS AND URETERS: No evidence of hydronephrosis. Nonobstructive right renal 4 mm calculus. The kid neys enhance symmetrically. PELVIS BLADDER: Incompletely distended but grossly unremarkable. REPRODUCTIVE: The uterus is surgically absent. ABDOMEN & PELVIS STOMACH AND BOWEL: Stomach and duodenum are unremarkable. Descending colon long segment wall thickeni ng with surrounding fat stranding. No surrounding organized fluid collection. The appendix is not franklin ntified however no significant inflammatory changes within the right lower quadrant. No CT evidence f or active bleeding within the bowel identified. No evidence of bowel obstruction. PERITONEUM: No evidence of pneumoperitoneum or free fluid. MUSCULOSKELETAL: No acute osseous abnormalities. Postsurgical changes with posterior fusion with bila teral pedicular screws and rods involving L4-L5. Multilevel degenerative disc disease. LYMPH NODES: No evidence for lymphadenopathy. SOFT TISSUE/ABDOMINAL WALL: Tiny fatty umbilical hernia. LOWER CHEST: Right lower lobe subsegmental atelectasis. Volume loss of the right lung with mediastina l shift to the right. Coronary artery calcifications. IMPRESSION 1. Long segment colitis involving the descending colon likely from an infectious or inflammatory molly ology. No CTA evidence for active GI bleed. 2. Nonobstructive right renal calculus. [facility], , 01/06/2024 1:18 PM
[2024-01-06 14:03] VITALS: BP 114/65; PULSE 87
== END 2024-01-06 14:17 | disposition home or self-care (01) ==
LOC: EC 11:08
CPT/HCPCS: 36415; 74174; 80053; 83605; 83735; 84484; 85025; 85610; 85730; 86850; 86900; 86901; 93005; 99285

== ENCOUNTER 2024-10-06 09:13 | Day surgery (SDC) | payer MEDICARE ==
[2024-10-04 10:34] VITALS: BMI 28.6
[2024-10-06] MEDS ORDERED: LIDOCAINE 1% (10MG/ML) FOR IV START INTRADERMA PRN (09:40)
[2024-10-06] MEDS ORDERED: fentaNYL (PF) 50 MCG/ML 2 ML AMP IVP PRN (09:40)
[2024-10-06] MEDS: IV FLUID CONTINUATION 1,000 ML IV ONE (09:47)
[2024-10-06] MEDS: ONDANSETRON 4 MG/2 ML VIAL IVP ONE (10:27)
[2024-10-06] MEDS: DEXAMETHASONE SOD PHOSPHATE 4 MG/ML 1 ML VIAL IV ONE (10:27)
[2024-10-06] MEDS: MIDAZOLAM 2 MG/2 ML VIAL IV PRN (10:34)
--- NOTE | 2024-10-06 10:49 | P.ANPRN ---
Procedure Note - Anesthesia - Nerve Block Performed Left Adductor Canal Single Time Out Performed: Yes Date of Procedure: 10/06/24 Procedure Start Time: 10:36 Procedure Stop Time: 10:40 Location of Patient: PreOp Indication: Acute Post-Operative Pain, Requested by Surgeon Sedation Type: Sedate with meaningful contact maintained Preparation: Sterile Prep, Sterile Dressing Position: Supine Catheter: None Needle Types: Facet Needle Gauge: 20 Ultrasound used to visualize needle placement: Yes Ultrasound used to observe medication spread: Yes Injectate: 0.5% Ropivacaine (see comment for volume) (10 ml + decadron 2 mg) Blood Aspirated: No Pain Paresthesia on Injection Noted: No Resistance on Injection: Normal Image Stored and Saved: Yes Events: Uneventful and Well Tolerated Right Popliteal Single Time Out Performed: Yes Date of Procedure: 10/06/24 Procedure Start Time: 10:41 Procedure Stop Time: 10:44 Location of Patient: PreOp Indication: Acute Post-Operative Pain, Requested by Surgeon Sedation Type: Sedate with meaningful contact maintained Preparation: Sterile Prep, Sterile Dressing Position: Right Lateral Catheter: None Needle Types: Facet Needle Gauge: 20 Ultrasound used to visualize needle placement: Yes Ultrasound used to observe medication spread: Yes Injectate: 0.5% Ropivacaine (see comment for volume) (20 ml + decadron 2 mg) Blood Aspirated: No Pain Paresthesia on Injection Noted: No Resistance on Injection: Normal Image Stored and Saved: Yes Events: Uneventful and Well Tolerated
[2024-10-06] MEDS: LACTATED RINGERS 1,000 ML IV SCH (10:53)
[2024-10-06] MEDS ORDERED: PHENYLEPHRINE-0.9% NACL SYG 1,000 MCG/10 ML SYRINGE ONE (11:21)
[2024-10-06] MEDS ORDERED: ROPIVACAINE 5 MG/ML 30 ML VIAL ONE (11:21)
[2024-10-06] MEDS ORDERED: PROPOFOL 10 MG/ML 20 ML VIAL IV ONE (11:21)
[2024-10-06] MEDS ORDERED: LIDOCAINE 1% INJ 10MG/ML (20 ML MDV) ONE (11:21)
[2024-10-06] MEDS ORDERED: fentaNYL (PF) 50 MCG/ML 2 ML AMP ONE (11:21)
[2024-10-06] MEDS ORDERED: DEXAMETHASONE SOD PHOSPHATE 4 MG/ML 1 ML VIAL ONE (11:21)
[2024-10-06] MEDS ORDERED: PHENYLEPHRINE 10 MG/ML VIAL ONE (11:21)
--- NOTE | 2024-10-06 12:38 | FL ---
EXAMINATION TYPE: FL guidance operating room DATE OF EXAM: 10/06/2024 HISTORY: Fluoroscopy time Total dose area product (DAP) in uGy*m?, mGy*cm? (or similar): 0.77867 IMPRESSION: 1. Fluoroscopy time. [facility], , 10/06/2024 12:36 PM
[2024-10-06 12:47] VITALS: TEMP 97.4
--- NOTE | 2024-10-06 12:48 | P.OP ---
Date of Procedure: 10/06/24 Preoperative Diagnosis: Displaced medial malleolus fracture left ankle Postoperative Diagnosis: Same Procedure(s) Performed: Open reduction with internal fixation left medial malleolus fracture Implants: Chama 2.7 mm Y plate with three 2.7 mm and nonlocking screws and one 2.7 mm locking screw Anesthesia: JESUS ALBERTO Surgeon: Juve Oconnell Estimated Blood Loss (ml): 1 Pathology: none sent Condition: stable Disposition: PACU Description of Procedure: Prior to the patient being brought to the op room, anesthesia administered a nerve block on the operative extremity. Then the patient was brought into the op room and placed on table in supine position. Timeout was taken to confirm correct patient identifiers, correct laterality of surgery, and correct procedure. Once the staff in the room was in agreement timeout, the patient was induced and placed under general anesthesia. A well-padded tourniquet was placed in the left thigh and the left leg was prepped and draped usual manner. The leg was exsanguinated, the knee flexed and the tourniquet inflated to 250 mmHg. Attention directed over the medial malleolus a curvilinear incision was made directly over the structure. It was deepened down to the subcutaneous tissue careful to identify, void, and retracting neurovascular structures and cauterize any bleeding vessels. The great saphenous vein was identified and carefully retracted anteriorly. The fracture line was palpated. An incision was made through the periosteum at the fracture line to allow for mobilization. An osteotome was inserted and used to separate the fracture fragment from the tibia. A curette was used to remove any hematoma, soft tissue or any osseous particles. Once that was completed the area was thoroughly irrigated with antibiotic saline. A bone reduction clamp was used to reduce the fracture. Fluoroscopy confirmed anatomic alignment of the fracture. A Chama 2.7 mm Y plate was placed over the fracture and aligned under fluoroscopy. Once properly aligned it was temporarily fixated. The antiglide screw was placed through the plate just superior to the fracture. This was a bicortical screw and used to reduce the fracture and prevent any vertical displacement. The next 2 screws were interfragmentary screws through the plate to allow for compression of the fracture. These were done medial to lateral but stopped short of the incisura. Lascar was a the most proximal screw which was a locking screw that was placed bicortically. Final fluoroscopic imaging showed anatomic alignment of the fracture on AP and lateral views. The wound was thoroughly irrigated with antibiotic saline. The deep closure was done with 2-0 Vicryl. Subcutaneous closure and skin closure done with 4-0 Stratafix in a running subcuticular manner. Dermal glue and Steri-Strips were placed over the incision. A dry sterile dressing was applied to the left ankle. The tourniquet was released capillary refill returned to all digits of the foot. The patient was placed in a well-padded, well molded plaster posterior mold/sugar-tong splint. The ankle was held in neutral position until the splint was dried. Then anesthesia was reversed and the patient was taken recovery vital signs stable
[2024-10-06 13:18] VITALS: RESP 16
[2024-10-06 13:45] VITALS: PULSE 89
[2024-10-06 13:46] VITALS: BP 123/54
--- NOTE | 2024-10-06 14:31 | XR ---
EXAMINATION TYPE: XR ankle complete LT DATE OF EXAM: 10/06/2024 COMPARISON: NONE CLINICAL INDICATION: Female, 64 years old with history of ORIF Left Ankle; TECHNIQUE: 3 views submitted FINDINGS: Intraoperative images demonstrate surgical change of the distal tibia. Limited resolution. IMPRESSION: Postsurgical changes [facility], , 10/06/2024 2:29 PM
== END 2024-10-06 13:50 | disposition home or self-care (01) ==
LOC: OR 09:13
PROVIDERS: ATTEND Podiatrist
DX: S82.52XA Displaced fracture of medial malleolus of left tibia, initial encounter for closed fracture (principal); M79.7 Fibromyalgia; I25.10 Atherosclerotic heart disease of native coronary artery without angina pectoris; J44.9 Chronic obstructive pulmonary disease, unspecified; G89.18 Other acute postprocedural pain; K25.9 Gastric ulcer, unspecified as acute or chronic, without hemorrhage or perforation; F17.200 Nicotine dependence, unspecified, uncomplicated; Z88.5 Allergy status to narcotic agent; Z79.82 Long term (current) use of aspirin; X58.XXXA Exposure to other specified factors, initial encounter
CPT/HCPCS: 64445; 64447